=== PATIENT | male | born 1935 | race Caucasian/White ===

== ENCOUNTER 2017-07-18 13:01 | Inpatient (IN) | payer MEDICARE, OTHER ==
[2017-07-18] MEDS ORDERED: PROVENTIL 2.5 MG/3 ML NEB IH ONE ×2 (13:31→13:37)
[2017-07-18] MEDS ORDERED: Lactated Ringers 1,000 ML IV SCH (14:00)
[2017-07-18] MEDS ORDERED: solu-MEDROL 125 MG IV ONE (14:00)
[2017-07-18 14:12] LABS: A-aADO2 -7; ABG HEMOGLOBIN 13.7; ABG POTASSIUM 4.4 (3.5-5.1); ABG SITE LEFT BRACHIAL; ARTERIAL BLD GAS O2 SATURATION 99.6 % (95-100); ARTERIAL BLOOD GAS BASE EXCESS 6.2 (-2.0-2.0); ARTERIAL BLOOD GAS FIO2 28 %; ARTERIAL BLOOD GAS PCO2 54 mmHg (35-45); ARTERIAL BLOOD GAS PO2 139 mmHg (75-100); ARTERIAL BLOOD GAS pH 7.39 (7.35-7.45); CARBOXYHEMOGLOBIN 2.4 % THgb (0.0-6.9); HCO3- 32.7 (22-28); HGB O2 SAT 96.4 g/dF (94-100); Methhemoglobin 0.9 % (1.4-1.5); paO2 pAO1 1.05
[2017-07-18 14:14] LABS: BASOPHIL % 0.4 % (0.0-0.4); Basophil (Absolute #) 0.03 (0-0.4); Eosinophil % 4.9 % (0.00-5.0); Eosinophil (Absolute #) 0.41 (0-0.5); Granulocytes % 60.8 % (36.0-66.0); Hematocrit 43.3 % (42-50); Hemoglobin 13.9 gm/dl (12.5-18.0); Lymphocyte (Absolute #) 1.95 (1.0-4.6); Lymphocytes % 23.3 % (24.0-44.0); Mean Cell Volume 95.4 fl (78-100); Mean Corpuscular Hemoglobin 30.6 pg (26-32); Mean Corpuscular Hgb Concent. 32.1 g/dl (32-36); Monocyte (Absolute #) 0.89 (0.0-1.3); Monocytes % 10.6 % (0.0-12.0); Platelet Count 210 K/mm3 (150-450); Red Blood Count 4.54 M/mm3 (4.1-5.6); Red Cell Distribution Width 13.7 % (11.5-14.0); White Blood Count 8.4 K/mm3 (4.0-10.5)
[2017-07-18 14:36] LABS: ALKALINE PHOSPHATASE 61 U/L (38-126); ANION GAP 13.2 MEQ/L (5-15); BLOOD UREA NITROGEN 19 mg/dL (9-20); CHLORIDE 101 mmol/L (98-107); Calcium 9.7 mg/dL (8.4-10.2); Carbon Dioxide 34 mmol/L (22-30); Glucose 91 mg/dL (74-106); Potassium 4.7 mmol/L (3.5-5.1); SGOT/AST 24 U/L (17-59); SGPT/ALT 20 U/L (0-50); SODIUM 143 mmol/L (137-145); Total Protein 6.8 g/dL (6.3-8.2)
--- NOTE | 2017-07-18 14:39 | XRAY ---
Indication: Hypoxia. Respiratory failure. COPD. Comparison: March 18, 2017. PA/lateral chest unchanged again demonstrating chronic right hemidiaphragm elevation with adjacent subsegmental atelectasis/scarring. Heart is not enlarged. Vascularity normal. Bony thorax intact again with remote T8 compression fracture. Impression: Stable nonacute chest with chronic features.
[2017-07-18 14:46] LABS: NT PRO BNP 874 pg/mL (0-1800)
[2017-07-18] MEDS: ROCEPHIN 1 Gm-D5w 50 ml Bag** 1 G/50 ML IVPB IV SCH (15:30)
[2017-07-18] MEDS: Zithromax 500 MG/ 250 ML NaCl Premix 500 MG/250 ML IVPB IV SCH (16:06)
[2017-07-18] MEDS ORDERED: NON-FORMULARY ITEM (Albuterol Sulfate Mdi*** 2 PUFF) PO PRN (17:22)
[2017-07-18] MEDS ORDERED: PROVENTIL COMMON CANISTER IH PRN (17:30)
[2017-07-18] MEDS ORDERED: solu-MEDROL 125 MG IV SCH (18:00)
[2017-07-18] MEDS: DUONEB 0.5-3 MG/3 ml Neb IH SCH ×2 (19:22→20:48)
[2017-07-18] MEDS: Coreg 6.25 MG PO SCH (21:13)
[2017-07-18] MEDS: Pepcid 20 MG PO SCH (21:14)
[2017-07-18] MEDS: solu-MEDROL 125 MG IV SCH (21:14)
[2017-07-19] MEDS: DUONEB 0.5-3 MG/3 ml Neb IH SCH ×7 (00:36→23:58)
[2017-07-19] MEDS: solu-MEDROL 125 MG IV SCH ×4 (03:57→21:16)
--- NOTE | 2017-07-19 07:05 | PCM.HP ---
History of Present Illness - Chief Complaint Chief Complaint: COPD exac., acute hypoxemia, respiratory failure Date: 07/19/17 History of Present Illness: is a 82 year old male. who has history of chrnoically worsening copd. He couldn't afford the breo and has been using albuterol inhaler at home for the last several months with minimal relief and over the last week or so has been profoundly short of breath with wheezing with minimal activity. He has persistent cough with productive sputum no blood. He has not had fever, vomiting or diarrhea. He presented to clinic where he was found to be in respiratory distress with O2 sat of 88% on room air. He improved minimally after duoneb treatment and placement on 3L nc O2. He was admitted for treatment of copd exacerbation with likely chronic hypoxemic respiratory failure as well. Still short of breath this am but much better on the O2 and nebs - Review of Systems Constitutional: Fatigue, No Fever, No Chills Eyes: No Symptoms Ears, Nose, & Throat: No Symptoms Respiratory: Cough, Orthopnea, Short Of Breath Cardiac: No Chest Pain, No Edema, No Syncope Abdominal/Gastrointestinal: No Abdominal Pain, No Nausea, No Vomiting, No Diarrhea Genitourinary Symptoms: No Dysuria Musculoskeletal: No Back Pain, No Neck Pain Skin: No Rash Neurological: No Dizziness, No Focal Weakness, No Sensory Changes Psychological: No Symptoms Endocrine: No Symptoms Hematologic/Lymphatic: No Symptoms Immunological/Allergic: No Symptoms Medications & Allergies Home Medications: Home Medication List Albuterol Sulfate Mdi [Proair Hfa MDI] 2 puff PO Q4H PRN 07/18/17 [ History Confirmed 07/18/17] Aspirin 81 mg PO DAILY 07/18/17 [History Confirmed 07/18/17] Carvedilol [Carvedilol] 6.25 mg PO DAILY 07/18/17 [History Confirmed 07/18/17] Fluticasone Propionate [Flonase Nasal] 16 gm NS DAILY 07/18/17 [History Confirmed 07/18/17] Furosemide [Furosemide] 40 mg PO DAILY PRN 07/18/17 [History Confirmed 07/18/17] Losartan Potassium [Losartan Potassium] 100 mg PO DAILY 07/18/17 [History Confirmed 07/18/17] PANTOPRAZOLE 40 mg Tablet [Protonix 40MG Tablet] 40 mg PO QAM 07/18/17 [ History Confirmed 07/18/17] Potassium Chloride [Klor-Con M10] 10 meq PO DAILY 07/18/17 [History Confirmed ] Allergies/Adverse Reactions: Allergies Allergy/AdvReac Type Severity Reaction Status Date / Time codeine AdvReac Verified 07/18/17 14:21 - Past Medical History Past Medical History: Yes ENT History: Cataracts Cardiac History: Congestive Heart Failure Respiratory History: CHF, COPD, Pneumonia, Pulmonary Embolism (1967 after the appendectomy) Musculoskelatal History: Arthritis GI Medical History: No Pertinent History History: No Pertinent History Pyscho-Social History: No Pertinent History Male Reproductive Disorders: No Pertinent History - Past Surgical History Past Surgical History: Yes Neuro Surgical History: No Pertinent History Cardiac History: Cardiac Catheterization GI Surgical History: Appendectomy Musculskeletal Surgical Hx: Orthopedic Surgery Other Surgical History: fatty tumor off chest, r rotator cuff shoulder - Social History Smoking Status: Former smoker Exposure to second hand smoke: No Alcohol: None Drug Use: none - Physical Exam Vital Signs: Vital Signs - 24 hr Temp Pulse Resp BP Pulse Ox 07/19/17 04:03 72 18 95 07/19/17 04:00 97.7 F 84 16 137/73 94 L 07/19/17 00:37 74 18 94 L 07/19/17 00:00 97.8 F 79 18 104/61 94 L 07/18/17 20:50 85 18 95 07/18/17 19:46 97.9 F 94 H 18 153/83 97 07/18/17 18:00 20 07/18/17 16:46 97.8 F 79 20 120/60 97 07/18/17 13:45 97.6 F 76 22 150/69 90 L 07/18/17 13:43 74 22 96 Oxygen-Last 24 hours O2 Percentage 3 Liters = 32% O2 Percentage 2 Liters = 28% O2 Percentage 2 Liters = 28% O2 Percentage 3 Liters = 32% General Appearance: mild distress, alert Neurologic Exam: alert, oriented x 3, cooperative, normal mood/affect, nml cerebellar function, nml station & gait, sensation nml, No motor deficits Eye Exam: PERRL/EOMI, eyes nml inspection Ears, Nose, Throat Exam: normal ENT inspection, TMs normal, pharynx normal, moist mucous membranes Neck Exam: normal inspection, non-tender, supple, full range of motion Respiratory Exam: respiratory distress, accessory muscle use, prolonged expirations, wheezing Cardiovascular Exam: regular rate/rhythm, normal peripheral pulses, murmur, No edema Gastrointestinal/Abdomen Exam: soft, normal bowel sounds, No tenderness, No mass Back Exam: normal inspection, normal range of motion, No CVA tenderness, No vertebral tenderness Extremity Exam: normal inspection, normal range of motion, pelvis stable Skin Exam: normal color, warm, dry, No rash Lymphatic Exam: No adenopathy Results - Labs Lab/Micro Results: Lab Results-Last 24 Hours 07/18/17 07/18/17 07/18/17 Range/Units 13:55 13:55 14:10 WBC 8.4 (4.0-10.5) K/mm3 RBC 4.54 (4.1-5.6) M/mm3 Hgb 13.9 (12.5-18.0) gm/dl Hct 43.3 (42-50) % MCV 95.4 (78-100) fl MCH 30.6 (26-32) pg MCHC 32.1 (32-36) g/dl RDW 13.7 (11.5-14.0) % Plt Count 210 (150-450) K/mm3 MPV 9.0 (6-9.5) fl Gran % 60.8 (36.0-66.0) % Eos # (Auto) 0.41 (0-0.5) Absolute Lymphs (auto) 1.95 (1.0-4.6) Absolute Monos (auto) 0.89 (0.0-1.3) Lymphocytes % 23.3 L (24.0-44.0) % Monocytes % 10.6 (0.0-12.0) % Eosinophils % 4.9 (0.00-5.0) % Basophils % 0.4 (0.0-0.4) % Absolute Granulocytes 5.10 (1.4-6.9) Basophils # 0.03 (0-0.4) Puncture Site LEFT BRACHIAL pCO2 54 H (35-45) mmHg pO2 139 H* (75-100) mmHg Base Excess 6.2 H (-2.0-2.0) O2 Saturation 96.4 (94-100) g/dF ABG pH 7.39 (7.35-7.45) ABG HCO3 32.7 H* (22-28) ABG O2 Sat (Measured) 99.6 (95-100) % Srinivasan Test NOT APPLICABLE A-a Gradient -7 a/A Ratio 1.05 Hemoglobin 13.7 Carboxyhemoglobin 2.4 (0.0-6.9) % THgb Methemoglobin 0.9 L (1.4-1.5) % Temperature 37.0 C POC O2 Flow Rate 28 % Sodium 143 (137-145) mmol/L Potassium 4.7 4.4 (3.5-5.1) mmol/L Chloride 101 (98-107) mmol/L Carbon Dioxide 34 H (22-30) mmol/L Anion Gap 13.2 (5-15) MEQ/L BUN 19 (9-20) mg/dL Creatinine 1.00 (0.66-1.25) mg/dL Estimated GFR > 60 ML/MIN Glucose 91 (74-106) mg/dL Lactic Acid (0.4-2.0) Calcium 9.7 (8.4-10.2) mg/dL Magnesium 2.4 H (1.6-2.3) mg/dL Total Bilirubin 0.90 (0.2-1.3) mg/dL AST 24 (17-59) U/L ALT 20 (0-50) U/L Alkaline Phosphatase 61 (38-126) U/L NT-Pro-B Natriuret Pep 874 (0-1800) pg/mL Serum Total Protein 6.8 (6.3-8.2) g/dL Albumin 4.0 (3.5-5.0) g/dL 07/18/17 Range/Units 14:10 WBC (4.0-10.5) K/mm3 RBC (4.1-5.6) M/mm3 Hgb (12.5-18.0) gm/dl Hct (42-50) % MCV (78-100) fl MCH (26-32) pg MCHC (32-36) g/dl RDW (11.5-14.0) % Plt Count (150-450) K/mm3 MPV (6-9.5) fl Gran % (36.0-66.0) % Eos # (Auto) (0-0.5) Absolute Lymphs (auto) (1.0-4.6) Absolute Monos (auto) (0.0-1.3) Lymphocytes % (24.0-44.0) % Monocytes % (0.0-12.0) % Eosinophils % (0.00-5.0) % Basophils % (0.0-0.4) % Absolute Granulocytes (1.4-6.9) Basophils # (0-0.4) Puncture Site pCO2 (35-45) mmHg pO2 (75-100) mmHg Base Excess (-2.0-2.0) O2 Saturation (94-100) g/dF ABG pH (7.35-7.45) ABG HCO3 (22-28) ABG O2 Sat (Measured) (95-100) % Srinivasan Test A-a Gradient a/A Ratio Hemoglobin Carboxyhemoglobin (0.0-6.9) % THgb Methemoglobin (1.4-1.5) % Temperature C POC O2 Flow Rate % Sodium (137-145) mmol/L Potassium (3.5-5.1) mmol/L Chloride (98-107) mmol/L Carbon Dioxide (22-30) mmol/L Anion Gap (5-15) MEQ/L BUN (9-20) mg/dL Creatinine (0.66-1.25) mg/dL Estimated GFR ML/MIN Glucose (74-106) mg/dL Lactic Acid 0.6 (0.4-2.0) Calcium (8.4-10.2) mg/dL Magnesium (1.6-2.3) mg/dL Total Bilirubin (0.2-1.3) mg/dL AST (17-59) U/L ALT (0-50) U/L Alkaline Phosphatase (38-126) U/L NT-Pro-B Natriuret Pep (0-1800) pg/mL Serum Total Protein (6.3-8.2) g/dL Albumin (3.5-5.0) g/dL - Radiology Impressions Radiology Exams & Impressions: Radiology Procedures Category Date Time Status CHEST 2 VIEWS (PA AND LAT) Routine Exams 07/18/17 14:15 Completed - Other Procedures and Tests Respiratory Therapy 07/18/17 13:37 Respiratory Nebulizer STAT 07/18/17 13:40 Respiratory Nebulizer Q4H Respiratory Therapy Consult ROUTINE 07/18/17 13:44 RT Miscellaneous Order ROUTINE 07/18/17 13:45 EKG UD Assessment/Plan (1) Acute exacerbation of chronic obstructive pulmonary disease (COPD) Current Visit: Yes Status: Acute Assessment & Plan: solumedrol, azithromycin, ceftriaxone, duonebs lovenox for ppx pepcid for gi ppx O2 wean as tolerated He has appointment set up to establish with Dr. Conklin on 08/02 he has shown much improvement since last night but still significant wheezing Code(s): J44.1 - CHRONIC OBSTRUCTIVE PULMONARY DISEASE W (ACUTE) EXACERBATION (2) Acute respiratory failure Current Visit: Yes Status: Acute Code(s): J96.00 - ACUTE RESPIRATORY FAILURE , UNSP W HYPOXIA OR HYPERCAPNIA (3) Chronic systolic heart failure Current Visit: Yes Status: Acute Assessment & Plan: was following with Dr. Dao last LVEF from 2013 on file 30 to 40% has not seen in a few years moderate aortic and mitral regurgitation given his orthopnea will repeat echo He did report history of PE that was in 1967 after an appendectomy he has not had any problem with blood clots since Code(s): I50.22 - CHRONIC SYSTOLIC (CONGESTIVE) HEART FAILURE
[2017-07-19] MEDS: ROCEPHIN 1 Gm-D5w 50 ml Bag** 1 G/50 ML IVPB IV SCH (09:17)
[2017-07-19] MEDS: ENOXAPARIN SODIUM SQ SCH (09:20)
[2017-07-19] MEDS: Pepcid 20 MG PO SCH ×2 (09:24→21:16)
[2017-07-19] MEDS: Cozaar 50 MG PO SCH (09:24)
[2017-07-19] MEDS: Coreg 6.25 MG PO SCH ×2 (09:24→21:16)
[2017-07-19] MEDS: Flonase NASAL NS SCH (09:24)
[2017-07-19] MEDS: ECOTRIN 81 MG PO SCH (09:24)
[2017-07-19] MEDS: Protonix 40MG Tablet PO SCH (09:24)
[2017-07-19] MEDS ORDERED: BABY ASPIRIN 81 MG CHEW PO SCH (10:00)
[2017-07-19] MEDS: Zithromax 500 MG/ 250 ML NaCl Premix 500 MG/250 ML IVPB IV SCH (10:11)
[2017-07-20] MEDS: solu-MEDROL 125 MG IV SCH ×4 (03:44→23:13)
[2017-07-20] MEDS: DUONEB 0.5-3 MG/3 ml Neb IH SCH ×5 (04:02→23:42)
[2017-07-20] MEDS: ROCEPHIN 1 Gm-D5w 50 ml Bag** 1 G/50 ML IVPB IV SCH (10:09)
[2017-07-20] MEDS: Pepcid 20 MG PO SCH ×2 (10:10→23:12)
[2017-07-20] MEDS: Cozaar 50 MG PO SCH (10:10)
[2017-07-20] MEDS: Protonix 40MG Tablet PO SCH (10:10)
[2017-07-20] MEDS: Coreg 6.25 MG PO SCH ×2 (10:10→23:13)
[2017-07-20] MEDS: ECOTRIN 81 MG PO SCH (10:11)
[2017-07-20] MEDS: ENOXAPARIN SODIUM SQ SCH (10:11)
[2017-07-20] MEDS: Flonase NASAL NS SCH (10:12)
[2017-07-20] MEDS: Zithromax 500 MG/ 250 ML NaCl Premix 500 MG/250 ML IVPB IV SCH (10:31)
--- NOTE | 2017-07-20 13:35 | PCM.NOTE ---
Date and Time: 07/20/17 1332 Subjective Assessment: Pt currently receiving breathing tx. He indicates he is somewhat better, states he is "getting better little by little." Cornelius po well. - Review of Systems Constitutional: No Fever Respiratory: Short Of Breath Objective Exam General Appearance: no apparent distress Neurologic Exam: alert, cooperative Skin Exam: normal color, warm, dry, No rash Eye Exam: eyes nml inspection Ears, Nose, Throat Exam: moist mucous membranes Respiratory Exam: diminished breath sounds (fair air exchange), wheezing ( throughout), No crackles/rales, No rhonchi Cardiovascular Exam: regular rate/rhythm, normal heart sounds, No murmur Extremity Exam: No pedal edema, No swelling Back Exam: normal inspection, No rash OBJECTIVE DATA Vital Signs: Vital Signs - 24 hr Temp Pulse Resp BP Pulse Ox 07/20/17 12:30 89 20 98 07/20/17 11:53 98 F 82 18 113/62 94 L 07/20/17 10:00 18 07/20/17 07:41 98.3 F 74 20 117/68 95 07/20/17 07:40 89 22 98 07/20/17 06:00 20 07/20/17 04:05 98.0 F 82 20 122/60 98 07/20/17 04:02 86 20 98 07/20/17 02:00 20 07/20/17 00:05 98.1 F 77 20 135/63 96 07/19/17 23:58 81 20 95 07/19/17 22:00 20 07/19/17 20:11 84 20 94 L 07/19/17 20:10 98.2 F 71 20 137/66 96 07/19/17 17:12 22 07/19/17 16:00 97.7 F 91 H 18 127/60 96 07/19/17 13:51 20 Oxygen-Last 24 hours O2 Percentage 3 Liters = 32% O2 Percentage 2 Liters = 28% O2 Percentage 2 Liters = 28% O2 Percentage 2 Liters = 28% Pain Assessment - Last Documented Pain Intensity 0 Pain Scale Used 0-10 Pain Scale Intake and Output: Intake & Output 07/18/17 07/19/17 07/20/17 07/21/17 11:59 11:59 11:59 11:59 Intake Total 1946 1520 360 Output Total 400 700 400 Balance 1546 820 -40 Weight 81.6 kg Radiology Exams: Radiology Procedures Category Date Time Status CHEST 2 VIEWS (PA AND LAT) Routine Exams 07/18/17 14:15 Completed ECHO W/2D AND DOPPLER [US] Routine Exams 07/19/17 08:01 Taken Assessment/Plan (1) Acute exacerbation of chronic obstructive pulmonary disease (COPD) Current Visit: Yes Status: Acute Onset Date: ~07/18/17 Assessment & Plan: Slowly but steadily improving; will not decrease steroids yet. Pt's O2 requirement was up to 3L per NC briefly but now back down to 2L NC. On Solumedrol 80mg IV q6h. Rocehpin and zithromax day #3. Duonebs. lovenox for DVT prophylaxis. Code(s): J44.1 - CHRONIC OBSTRUCTIVE PULMONARY DISEASE W (ACUTE) EXACERBATION (2) Chronic systolic heart failure Current Visit: Yes Status: Chronic Onset Date: ~07/18/17 Assessment & Plan: stable Code(s): I50.22 - CHRONIC SYSTOLIC (CONGESTIVE) HEART FAILURE
[2017-07-21] MEDS: DUONEB 0.5-3 MG/3 ml Neb IH SCH ×5 (03:51→23:00)
[2017-07-21] MEDS: solu-MEDROL 125 MG IV SCH ×3 (03:58→17:31)
[2017-07-21 05:53] LABS: BASOPHIL % 0.1 % (0.0-0.4); Basophil (Absolute #) 0.01 (0-0.4); Eosinophil (Absolute #) 0 (0-0.5); Granulocyte Absolute (ANC) 15.12 (1.4-6.9); Granulocytes % 92.6 % (36.0-66.0); Hematocrit 38.4 % (42-50); Hemoglobin 11.9 gm/dl (12.5-18.0); Lymphocyte (Absolute #) 0.84 (1.0-4.6); Lymphocytes % 5.1 % (24.0-44.0); Mean Cell Volume 97.7 fl (78-100); Mean Platelet Volume 9.4 fl (6-9.5); Monocyte (Absolute #) 0.36 (0.0-1.3); Monocytes % 2.2 % (0.0-12.0); Platelet Count 198 K/mm3 (150-450); Red Blood Count 3.93 M/mm3 (4.1-5.6); Red Cell Distribution Width 14.1 % (11.5-14.0); White Blood Count 16.3 K/mm3 (4.0-10.5)
[2017-07-21 06:03] LABS: Mean Corpuscular Hemoglobin 30.2 pg (26-32)
[2017-07-21 06:07] LABS: BLOOD UREA NITROGEN 36 mg/dL (9-20); CHLORIDE 104 mmol/L (98-107); Carbon Dioxide 32 mmol/L (22-30); Glucose 146 mg/dL (74-106); Potassium 4.7 mmol/L (3.5-5.1); SODIUM 143 mmol/L (137-145)
--- NOTE | 2017-07-21 09:39 | PCM.NOTE ---
Date and Time: 07/21/17935 Subjective Assessment: Pt is feeling better. Has some wheezing with nebs. - Review of Systems Constitutional: No Fever Respiratory: Cough, Short Of Breath Objective Exam General Appearance: no apparent distress, alert Neurologic Exam: oriented x 3, cooperative Skin Exam: normal color, warm, dry, No rash Respiratory Exam: normal breath sounds (good air exchange), wheezing (mild wheeze throughout) Cardiovascular Exam: regular rate/rhythm, normal heart sounds, No murmur Extremity Exam: pedal edema (1+ bilat pretibial edema) OBJECTIVE DATA Vital Signs: Vital Signs - 24 hr Temp Pulse Resp BP Pulse Ox 07/21/17 06:59 97.8 F 80 20 121/70 96 07/21/17 06:00 18 07/21/17 04:05 98.3 F 80 20 128/69 95 07/21/17 03:52 80 20 95 07/21/17 02:00 20 07/20/17 23:42 82 20 94 L 07/20/17 23:38 97.7 F 85 22 144/78 95 07/20/17 22:00 20 07/20/17 19:58 81 20 96 07/20/17 19:39 97.6 F 88 20 155/72 95 07/20/17 18:00 20 07/20/17 16:32 97.8 F 79 20 135/62 98 07/20/17 15:46 86 22 97 07/20/17 14:00 20 07/20/17 12:30 89 20 98 07/20/17 11:53 98 F 82 18 113/62 94 L 07/20/17 10:00 18 Oxygen-Last 24 hours O2 Percentage 2 Liters = 28% O2 Percentage 2 Liters = 28% O2 Percentage 3 Liters = 32% O2 Percentage 3 Liters = 32% O2 Percentage 2 Liters = 28% Pain Assessment - Last Documented Pain Intensity 0 Pain Scale Used 0-10 Pain Scale,FLACC Intake and Output: Intake & Output 07/18/17 07/19/17 07/20/17 07/21/17 11:59 11:59 11:59 11:59 Intake Total 1946 1520 2000 Output Total 909 323 3034 Balance 1546 820 400 Weight 81.6 kg Lab Results: Lab Results-Last 24 Hours 04/01/18 04/01/18 Range/Units 05:23 05:23 WBC 16.3 H (4.0-10.5) K/mm3 RBC 3.93 L (4.1-5.6) M/mm3 Hgb 11.9 L (12.5-18.0) gm/dl Hct 38.4 L (42-50) % MCV 97.7 (78-100) fl MCH 30.2 (26-32) pg MCHC 31.0 L (32-36) g/dl RDW 14.1 H (11.5-14.0) % Plt Count 198 (150-450) K/mm3 MPV 9.4 (6-9.5) fl Gran % 92.6 H (36.0-66.0) % Eos # (Auto) 0 (0-0.5) Absolute Lymphs (auto) 0.84 L (1.0-4.6) Absolute Monos (auto) 0.36 (0.0-1.3) Lymphocytes % 5.1 L (24.0-44.0) % Monocytes % 2.2 (0.0-12.0) % Eosinophils % 0.0 (0.00-5.0) % Basophils % 0.1 (0.0-0.4) % Absolute Granulocytes 15.12 H (1.4-6.9) Basophils # 0.01 (0-0.4) Sodium 143 (137-145) mmol/L Potassium 4.7 (3.5-5.1) mmol/L Chloride 104 (98-107) mmol/L Carbon Dioxide 32 H (22-30) mmol/L Anion Gap 11.0 (5-15) MEQ/L BUN 36 H (9-20) mg/dL Creatinine 1.00 (0.66-1.25) mg/dL Estimated GFR > 60 ML/MIN Glucose 146 H (74-106) mg/dL Calcium 9.0 (8.4-10.2) mg/dL Assessment/Plan (1) Acute exacerbation of chronic obstructive pulmonary disease (COPD) Current Visit: Yes Status: Acute Onset Date: ~07/18/17 Assessment & Plan: Started decreasing steroid, from 80mg IV q6h to 60mg IV q8h today. Anticipate home tomorrow or Saturday. Code(s): J44.1 - CHRONIC OBSTRUCTIVE PULMONARY DISEASE W (ACUTE) EXACERBATION (2) Chronic systolic heart failure Current Visit: Yes Status: Chronic Onset Date: ~07/18/17 Code(s): I50.22 - CHRONIC SYSTOLIC (CONGESTIVE) HEART FAILURE
[2017-07-21] MEDS: ROCEPHIN 1 Gm-D5w 50 ml Bag** 1 G/50 ML IVPB IV SCH ×2 (10:34→10:55)
[2017-07-21] MEDS: ECOTRIN 81 MG PO SCH (10:39)
[2017-07-21] MEDS: Cozaar 50 MG PO SCH (10:39)
[2017-07-21] MEDS: Coreg 6.25 MG PO SCH ×2 (10:39→21:14)
[2017-07-21] MEDS: ENOXAPARIN SODIUM SQ SCH (10:39)
[2017-07-21] MEDS: Pepcid 20 MG PO SCH ×2 (10:39→21:14)
[2017-07-21] MEDS: Protonix 40MG Tablet PO SCH (10:40)
[2017-07-21] MEDS: Flonase NASAL NS SCH (10:41)
[2017-07-21] MEDS: Zithromax 500 MG/ 250 ML NaCl Premix 500 MG/250 ML IVPB IV SCH (11:38)
[2017-07-22] MEDS: DUONEB 0.5-3 MG/3 ml Neb IH SCH ×6 (03:15→23:24)
[2017-07-22] MEDS: solu-MEDROL 125 MG IV SCH ×2 (03:39→09:11)
--- NOTE | 2017-07-22 08:04 | PCM.NOTE ---
Date and Time: 07/22/17 0800 Subjective Assessment: breathing treatment helps but about 1 hour after still very short of breath with minimal exertion still productive cough and wheezing he feels on the left side more shortness ovbreat with just changing position or talking currently but improving Objective Exam General Appearance: no apparent distress, alert Neurologic Exam: alert, oriented x 3, cooperative, normal mood/affect, nml cerebellar function, sensation nml, No motor deficits Skin Exam: normal color, warm, dry Eye Exam: PERRL, EOMI, eyes nml inspection Ears, Nose, Throat Exam: normal ENT inspection, pharynx normal, moist mucous membranes Neck Exam: normal inspection, non-tender, supple, full range of motion Respiratory Exam: rhonchi (left sidedwheezing right side clear), wheezing Cardiovascular Exam: murmur Gastrointestinal/Abdomen Exam: soft, No tenderness, No mass Extremity Exam: normal inspection, normal range of motion Back Exam: normal inspection, normal range of motion, No CVA tenderness, No vertebral tenderness Male Genitalia Exam: deferred Rectal Exam: deferred OBJECTIVE DATA Vital Signs: Vital Signs - 24 hr Temp Pulse Resp BP Pulse Ox 07/22/17 06:45 78 18 98 07/22/17 06:00 18 07/22/17 03:48 97.4 F 76 18 120/56 93 L 07/22/17 03:00 77 18 93 L 07/22/17 02:00 20 07/21/17 23:40 97.6 F 75 20 119/59 93 L 07/21/17 23:00 75 18 95 07/21/17 22:00 18 07/21/17 20:00 97.9 F 83 20 124/66 94 L 07/21/17 19:00 79 18 93 L 07/21/17 18:00 20 07/21/17 16:14 97.8 F 79 20 136/80 97 07/21/17 16:00 98.1 F 90 20 130/75 07/21/17 15:15 77 22 93 L 07/21/17 14:00 20 07/21/17 12:18 98.1 F 90 20 130/75 96 07/21/17 11:10 88 24 91 L Oxygen-Last 24 hours O2 Percentage 2 Liters = 28% O2 Percentage 2 Liters = 28% O2 Percentage 2 Liters = 28% Pain Assessment - Last Documented Pain Intensity 0 Pain Scale Used 0-10 Pain Scale Intake and Output: Intake & Output 07/19/17 07/20/17 07/21/17 07/22/17 11:59 11:59 11:59 11:59 Intake Total 1946 1520 1999 211 Output Total 016 835 2678 400 Balance 1546 492 517 1941 Weight 81.6 kg Assessment/Plan (1) Acute exacerbation of chronic obstructive pulmonary disease (COPD) Current Visit: Yes Status: Acute Onset Date: ~07/18/17 Assessment & Plan: still requiring O2 and still sob with minimal exertion will try to wean steroids try to qualify for home O2 with his chronic respiratory failure and plan for home tomorrow if tolerating the steroid wean Code(s): J44.1 - CHRONIC OBSTRUCTIVE PULMONARY DISEASE W (ACUTE) EXACERBATION (2) Acute respiratory failure Current Visit: Yes Status: Acute Onset Date: ~07/18/17 Code(s): J96.00 - ACUTE RESPIRATORY FAILURE, UNSP W HYPOXIA OR HYPERCAPNIA (3) Chronic systolic heart failure Current Visit: Yes Status: Chronic Onset Date: ~07/18/17 Code(s): I50.22 - CHRONIC SYSTOLIC (CONGESTIVE) HEART FAILURE (4) Chronic respiratory failure Current Visit: Yes Status: Acute Qualifiers: Respiratory failure complication: hypoxia Qualified Code(s): J96.11 - Chronic respiratory failure with hypoxia Code(s): J96.10 - CHRONIC RESPIRATORY FAILURE, UNSP W HYPOXIA OR HYPERCAPNIA
[2017-07-22] MEDS: Protonix 40MG Tablet PO SCH (09:08)
[2017-07-22] MEDS: ECOTRIN 81 MG PO SCH (09:08)
[2017-07-22] MEDS: DELTASONE 20 MG PO SCH (09:08)
[2017-07-22] MEDS: Coreg 6.25 MG PO SCH ×2 (09:08→22:11)
[2017-07-22] MEDS: Pepcid 20 MG PO SCH ×2 (09:08→22:11)
[2017-07-22] MEDS: Cozaar 50 MG PO SCH (09:08)
[2017-07-22] MEDS: ENOXAPARIN SODIUM SQ SCH (09:09)
[2017-07-22] MEDS: Flonase NASAL NS SCH (09:09)
[2017-07-22] MEDS: ROCEPHIN 1 Gm-D5w 50 ml Bag** 1 G/50 ML IVPB IV SCH (09:09)
[2017-07-22] MEDS: Zithromax 500 MG/ 250 ML NaCl Premix 500 MG/250 ML IVPB IV SCH (10:18)
[2017-07-23] MEDS: DUONEB 0.5-3 MG/3 ml Neb IH SCH ×3 (03:10→10:30)
--- NOTE | 2017-07-23 08:11 | PCM.DS ---
Discharge Summary Date of Admission: 07/18/17 13:12 Date of Discharge: 07/23/2017 Admitting Physician: LUCIEN HO Primary Care Provider: LUCIEN HO Allergies Allergies codeine Adverse Reaction (Verified 07/18/17 14:21) Hospital Summary - Hospital Course Hospital Course: Mr. Calhoun has hx of chf but several months ago was having worsening difficulty with cough and wheezing pft showed severe copd and he was placed on breo but couldn't afford and thus was not taking. His shortness of breath was worsening and he came to the office and was found to be hypoxic with severe wheezing and dimished air movement. He was admitted and treated with iv steroids and antibiotics as well as duonebs. He had an echocardiogram done with results pending. He showed slow improvement. He was reluctant to go home on oxygen and attempt was made to wean but was unsuccessful despite maximizing the treatment for the copd. He did agree to go home with oxygen and will complete a steroid taper and has appointment that was already scheduled to follow up with Dr. Vega. He will also start advair and spiriva or similar if we can find a covered alternative. - Vitals & Intake/Output Vital Signs: Vital Signs Temperature 98.3 F 07/23/17 07:32 Pulse Rate 88 07/23/17 07:49 Respiratory Rate 16 07/23/17 07:49 Blood Pressure 120/70 07/23/17 07:32 O2 Sat by Pulse Oximetry 99 07/23/17 07:49 Oxygen-Last Documented O2 Percentage 2 Liters = 28% Intake & Output: Intake & Output 07/20/17 07/21/17 07/22/17 07/23/17 11:59 11:59 11:59 11:59 Intake Total 1520 2000 2471 1320 Output Total 700 1600 400 300 Balance 277 489 8620 1020 Weight 81.6 kg - Lab Result Diagrams: 07/21/17 05:23 07/21/17 05:23 Micro Results-Entire Visit: Microbiology 07/18/17 21:30 Gram Stain - Final Sputum - Expectorant Sputum Culture - Final ORGANISMS ISOLATED ARE CONSISTENT WITH NORMAL RESP TYRON MODERATE GROWTH, NO PREDOMINANT ORGANISM 07/18/17 14:05 Blood Culture - Preliminary Blood NO GROWTH TO DATE 07/18/17 13:55 Blood Culture - Preliminary Blood NO GROWTH TO DATE - Procedures and Test Procedures and Tests throughout Hospitalization: Therapy Orders & Screens 07/18/17 13:37 Respiratory Nebulizer STAT Comment: 07/18/17 13:40 Respiratory Nebulizer Q4H Comment: Duoneb q 4 hr Respiratory Therapy Consult ROUTINE Comment: Reason For Exam: COPD exac., hypoxemia, respiratory failure Diagnosis: COPD exac., acute hypoxemia, respiratory failure 07/18/17 13:44 RT Miscellaneous Order ROUTINE Comment: Physician Instructions: Reason For Exam: O2 titrate pulse ox 88-92% Diagnosis: COPD exac., acute hypoxemia, respiratory failure 07/18/17 13:45 EKG UD Comment: Diagnosis: COPD exac., acute hypoxemia, respiratory failure 07/19/17 20:11 Oxygen NASAL CANNULA 2 lpm Comment: Diagnosis: COPD exac., acute hypoxemia, respiratory failure 07/22/17 08:03 Qualify for Home Oxygen ROUTINE Comment: Diagnosis: COPD exac., acute hypoxemia, respiratory failure Discharge Exam General Appearance: no apparent distress, alert Neurologic Exam: alert, oriented x 3, cooperative, normal mood/affect, nml cerebellar function, sensation nml, No motor deficits Skin Exam: normal color, warm, dry Eye Exam: PERRL, EOMI, eyes nml inspection Ears, Nose, Throat Exam: normal ENT inspection, pharynx normal, moist mucous membranes Neck Exam: normal inspection, non-tender, supple, full range of motion Respiratory Exam: wheezing, No respiratory distress Cardiovascular Exam: regular rate/rhythm, murmur Gastrointestinal/Abdomen Exam: soft, No tenderness, No mass Extremity Exam: normal inspection, normal range of motion Back Exam: normal inspection, normal range of motion, No CVA tenderness, No vertebral tenderness Male Genitalia Exam: deferred Rectal Exam: deferred Final Diagnosis/Problem List - Final Discharge Diagnosis/Problem (1) Acute exacerbation of chronic obstructive pulmonary disease (COPD) Status: Acute Onset Date: ~07/18/17 (2) Acute respiratory failure Status: Acute Onset Date: ~07/18/17 (3) Chronic systolic heart failure Status: Chronic Onset Date: ~07/18/17 (4) Chronic respiratory failure Status: Acute - Discharge Discharge Date: 07/23/17 Disposition: Home, Self-Care Condition: Stable Prescriptions: New Prednisone 10 mg [Deltasone 10 mg] 10 mg PO UD #36 tablet Fluticasone/Salmeterol [Advair 500-50 Diskus] 1 each IH BID #1 disk.w.dev Tiotropium [place] Inhaler [Spiriva 18 Mcg/Cap Inhaler] 1 ea IH DAILY # 30 inh Continue PANTOPRAZOLE 40 mg Tablet [Protonix 40MG Tablet] 40 mg PO QAM Potassium Chloride [Klor-Con M10] 10 meq PO DAILY Losartan Potassium 100 mg PO DAILY Furosemide 40 mg PO DAILY PRN PRN Reason: edema Fluticasone Propionate [Flonase Nasal] 16 gm NS BID Carvedilol 6.25 mg PO DAILY Aspirin 81 mg PO DAILY Albuterol Sulfate Mdi [Proair Hfa MDI] 2 puff PO Q4H PRN PRN Reason: sob Instructions: Oxygen Therapy, Adult (DC), Exacerbation of COPD (DC) Additional Instructions: 2 L nc O2 use at all times until follow up Follow up with: LAMAR VEGA [ACTIVE STAFF] - 08/01/17 9:30 am (keep appointment scheduled next week) LUCIEN HO [Primary Care Provider] - 07/30/17 9:45 am Forms: Discharge Instructions
[2017-07-23] MEDS: DELTASONE 20 MG PO SCH (09:10)
[2017-07-23] MEDS: Pepcid 20 MG PO SCH (09:10)
[2017-07-23] MEDS: Coreg 6.25 MG PO SCH (09:10)
[2017-07-23] MEDS: Protonix 40MG Tablet PO SCH (09:10)
[2017-07-23] MEDS: ECOTRIN 81 MG PO SCH (09:10)
[2017-07-23] MEDS: Cozaar 50 MG PO SCH (09:10)
[2017-07-23] MEDS: ROCEPHIN 1 Gm-D5w 50 ml Bag** 1 G/50 ML IVPB IV SCH (09:12)
[2017-07-23] MEDS: ENOXAPARIN SODIUM SQ SCH (09:14)
[2017-07-23] MEDS: Flonase NASAL NS SCH (09:15)
[2017-07-23] MEDS: Zithromax 500 MG/ 250 ML NaCl Premix 500 MG/250 ML IVPB IV SCH (09:50)
[2017-07-23 11:52] VITALS: BP 118/65; PULSE 83; O2SAT 95
== END 2017-07-23 12:45 | disposition home or self-care (01) | DRG 190 ==
LOC: UNDOADMIN 13:12 → MED SURG 13:12
PROVIDERS: ADMIT Family Medicine; ATTEND Family Medicine
DX: J44.1 Chronic obstructive pulmonary disease with (acute) exacerbation (principal); J96.00 Acute respiratory failure, unspecified whether with hypoxia or hypercapnia; I50.22 Chronic systolic (congestive) heart failure; J96.10 Chronic respiratory failure, unspecified whether with hypoxia or hypercapnia; Z86.711 Personal history of pulmonary embolism; Z87.891 Personal history of nicotine dependence
CPT/HCPCS: 36415; 36600; 71046; 80048; 80053; 82375; 82803; 83605; 83735; 83880; 85025; 87040; 87070; 93005; 93306; 94150; 94640; 94760; J0456; J0696; J1650; J2930; A9270-GY

== ENCOUNTER 2020-12-09 07:10 | Emergency (ER) | payer MEDICARE, OTHER ==
--- NOTE | 2020-12-09 07:19 | ERPHSYRPT ---
- History of Present Illness Time Seen by Provider: 12/09/20 07:19 Source: patient Exam Limitations: clinical condition Physician History: 85 y/o white male pt of dr. mendoza who presents with soa since last pm. sx worsening. no cp. bilat feet and ankle edema present. pt saw his pharmacognosy teacher 2 days ago( dr. bond). sx came on suddenly last pm. meds not taken this am. pt has h/o copd, htn, gerdz, chf. pt on 3 liters oxygen via nc. The patient's stock receiver is Dr. Dao Timing/Duration: today, yesterday, worse Activities at Onset: none Severity of Dyspnea-Max: moderate Severity of Dyspnea-Current: moderate Possible Cause: occasional episodes Associated Symptoms: ankle swelling, No chest pain/discomfort Allergies/Adverse Reactions: codeine Adverse Reaction (Verified 12/09/20 07:23) Home Medications: Albuterol Sulfate Mdi [Proair Hfa MDI] 2 puff PO Q4H PRN 07/18/17 [History] Furosemide 40 mg PO DAILY PRN 07/18/17 [History] Losartan Potassium 100 mg PO DAILY 07/18/17 [History] Potassium Chloride [Klor-Con M10] 10 meq PO DAILY 07/18/17 [History] carvediloL [Carvedilol] 6.25 mg PO DAILY 07/18/17 [History] Aspirin 81 gm Chew [Baby Aspirin 81 mg Chew] 1 ea .ROUTE DAILY 12/09/20 [History] Fluticasone/Umeclidin/Vilanter [Trelegy Ellipta 100-62.5-25] 1 puff PO DAILY 12/09/20 [History] Travel Risk - International Travel Have you traveled outside of the country in past 3 weeks: No - Coronavirus Screening Are you exhibiting any of the following symptoms?: Yes Symptoms: Shortness of Breath Close contact with a COVID-19 positive Pt in past 14-21 Days: No - Review of Systems Constitutional: No Symptoms Eyes: No Symptoms Ears, Nose, & Throat: No Symptoms Respiratory: Dyspnea, Wheezing Cardiac: No Symptoms Abdominal/Gastrointestinal: No Symptoms Genitourinary Symptoms: No Symptoms Musculoskeletal: No Symptoms Skin: No Symptoms Neurological: No Symptoms Psychological: No Symptoms Endocrine: No Symptoms Hematologic/Lymphatic: No Symptoms Immunological/Allergic: No Symptoms All Other Systems: Reviewed and Negative - Past Medical History Pertinent Past Medical History: Yes ENT History: Cataracts Cardiac History: Congestive Heart Failure Respiratory History: CHF, COPD, Pneumonia, Pulmonary Embolism (1967 after the appendectomy) Musculoskeletal History: Arthritis GI Medical History: No Pertinent History History: No Pertinent History Psycho-Social History: No Pertinent History Male Reproductive Disorders: No Pertinent History - Past Surgical History Past Surgical History: Yes Neuro Surgical History: No Pertinent History Cardiac: Cardiac Catheterization Gastrointestinal: Appendectomy Musculoskeletal: Orthopedic Surgery Other Surgical History: fatty tumor off chest, r rotator cuff shoulder - Social History Smoking Status: Former smoker Exposure to second hand smoke: No Drug Use: none - Nursing Vital Signs Nursing Vital Signs: Initial Vital Signs Temperature 97.7 F 12/09/20 07:12 Pulse Rate 120 H 12/09/20 07:12 Respiratory Rate 26 H 12/09/20 07:12 Blood Pressure 123/89 12/09/20 07:12 O2 Sat by Pulse Oximetry 100 12/09/20 07:12 Pain Scale Pain Intensity 0 - Physical Exam General Appearance: mild distress, alert, anxiety, obese Eye Exam: PERRL/EOMI, eyes nml inspection Ears, Nose, Throat Exam: hearing grossly normal Neck Exam: normal inspection, non-tender, supple, full range of motion Respiratory Exam: respiratory distress (Mild), airway intact, wheezing (Bilateral expiratory), No chest tenderness Cardiovascular/Chest Exam: tachycardia Abdominal/Gastrointestinal Exam: soft, normal bowel sounds, No tenderness Rectal Exam: not done Extremity Exam: non-tender, normal range of motion, pedal edema (Bilaterally) Neurologic Exam: alert, oriented x 3, cooperative, tablet technician II-XII nml as tested, normal mood/affect, sensation nml Skin Exam: normal color, warm, dry Lymphatic Exam: No adenopathy SpO2 Interpretation: normal O2 Delivery: Nasal Cannula - Course Nursing assessment & vital signs reviewed: Yes EKG Interpreted by Me: RATE ([id number]), Sinus Tach, Left Bundle Branch Block, Other (no acute ischemia. when compared to ekg dated 07/18/17, new sinus tach, new lbbb, rbbb and lafb resolved) Ordered Tests: Active Orders 24 hr Category Date Time Status EKG-ER Only STAT Care 12/09/20 07:29 Active IV Insertion STAT Care 12/09/20 07:29 Active Oxygen-ED Only Nasal Cannula 3 lpm Care 12/09/20 07:29 Active Pulse Oximetry (ED) STAT Care 12/09/20 07:29 Active CHEST 1 VIEW (PORTABLE) Stat Exams 12/09/20 07:29 Taken CHEST WITH CONTRAST [CT] Stat Exams 12/09/20 09:01 Completed CBC W DIFF Stat Lab 12/09/20 07:45 Completed CMP Stat Lab 12/09/20 07:45 Completed D-DIMER QUANTITATIVE Stat Lab 12/09/20 07:45 Completed Lactic Acid Urgent Lab 12/09/20 07:50 Completed Manual Differential NC Stat Lab 12/09/20 07:45 Completed PROTIME WITH INR Stat Lab 12/09/20 07:45 Completed TROPONIN Q3H Lab 12/09/20 07:30 Completed TROPONIN Q3H Lab 12/09/20 10:40 Received TROPONIN Q3H Lab 12/09/20 13:30 Ordered TROPONIN Q3H Lab 12/09/20 16:30 Ordered TROPONIN Q3H Lab 12/09/20 19:30 Ordered VBG [VENOUS BLOOD GAS] Stat Lab 12/09/20 07:50 Completed Respiratory Therapy Assessment DAILY RT 12/09/20 07:50 Active Medication Summary Generic Name Dose Route Start Last Admin Trade Name Freq PRN Reason Stop Dose Admin Sodium Chloride 500 mls @ 50 mls/hr 12/09/20 09:00 12/09/20 09:53 Sodium Chloride 0.9% 500 Ml IV 01/08/21 08:59 50 mls/hr .Q10H DIMPLE Administration Discontinued Medications Generic Name Dose Route Start Last Admin Trade Name Freq PRN Reason Stop Dose Admin Albuterol Sulfate 2.5 mg 12/09/20 07:32 12/09/20 07:51 Proventil 2.5 Mg/3 Ml Neb IH 12/09/20 07:33 2.5 mg STAT ONE Administration Albuterol Sulfate Confirm 12/09/20 07:36 Proventil 2.5 Mg/3 Ml Neb Administered 12/09/20 07:37 Dose 2.5 mg IH .STK-MED ONE Methylprednisolone Sodium 0 mg 12/09/20 07:32 12/09/20 08:56 Succinate 125 mg/ Sterile IV 12/09/20 07:33 125 mg Water 2 ml STAT ONE Administration Enoxaparin Sodium 90 mg 12/09/20 10:54 Enoxaparin Sodium SQ 12/09/20 10:55 STAT STA Furosemide 40 mg 12/09/20 07:32 12/09/20 08:56 Lasix 40 Mg/4 Ml IV 12/09/20 07:33 40 mg STAT ONE Administration Furosemide Confirm 12/09/20 08:54 Lasix 40 Mg/4 Ml Administered 12/09/20 08:55 Dose 40 mg .ROUTE .STK-MED ONE Sodium Chloride Confirm 12/09/20 09:49 Sodium Chloride 0.9% 1000 Ml Administered 12/09/20 09:50 Dose 1,000 mls @ ud .ROUTE .STK-MED ONE Methylprednisolone Sodium Succinate Confirm 12/09/20 08:54 Solu-Medrol Administered 12/09/20 08:55 Dose 125 mg .ROUTE .STK-MED ONE Sterile Water Confirm 12/09/20 08:55 Sterile H2o 10 Ml Administered 12/09/20 08:56 Dose 10 ml IJ .STK-MED ONE Lab/Rad Data: Laboratory Result Diagrams 12/09/20 07:45 12/09/20 07:45 Laboratory Results 12/09/20 12/09/20 12/09/20 Range/Units 07:50 07:50 07:45 WBC (4.0-10.5) K/mm3 RBC (4.1-5.6) M/mm3 Hgb (12.5-18.0) gm/dl Hct (42-50) % MCV (78-100) fl MCH (26-32) pg MCHC (32-36) g/dl RDW (11.5-14.0) % Plt Count (150-450) K/mm3 MPV (7.5-11.0) fl Absolute Granulocytes (1.4-6.9) Segmented Neutrophils (36.-66.) % Band Neutrophils (0.0-2.0) % Lymphocytes (Manual) (24-44) % Monocytes (Manual) (0.0-12.0) % Platelet Estimate (NORMAL) RBC Morphology PT 12.9 H (9.4-12.5) SECONDS INR 1.09 (0.8-3.0) D-Dimer 1572 H* (215-500) ng/mL pO2/FiO2 Ratio 32.0 % VBG pH 7.34 (7.32-7.42) VBG pCO2 at Pat Temp 70 H* (42-55) mm/Hg VBG pO2 at Pat Temp 20 L (25-40) mm/Hg VBG HCO3 37.8 H* (22-28) meq/L VBG O2 Sat (Ashleigh) 35.5 L (95-100) VBG Base Excess 9.2 H (-2.0-2.0) VBG Hemoglobin 13.4 VBG Carboxyhemoglobin 2.8 (0.0-6.9) % T HGB POC Potassium 4.9 (3.5-5.1) Sodium (137-145) mmol/L Potassium (3.5-5.1) mmol/L Chloride (98-107) mmol/L Carbon Dioxide (22-30) mmol/L Anion Gap (5-15) MEQ/L BUN (9-20) mg/dL Creatinine (0.66-1.25) mg/dL Estimated GFR ML/MIN Glucose (74-106) mg/dL Lactic Acid 1.8 (0.4-2.0) Calcium (8.4-10.2) mg/dL Total Bilirubin (0.2-1.3) mg/dL AST (17-59) U/L ALT (0-50) U/L Alkaline Phosphatase (38-126) U/L Troponin I (0.000-0.034) ng/mL Serum Total Protein (6.3-8.2) g/dL Albumin (3.5-5.0) g/dL 12/09/20 12/09/20 12/09/20 Range/Units 07:45 07:45 07:30 WBC 16.9 H (4.0-10.5) K/mm3 RBC 4.35 (4.1-5.6) M/mm3 Hgb 13.3 (12.5-18.0) gm/dl Hct 43.9 (42-50) % MCV 100.9 H (78-100) fl MCH 30.6 (26-32) pg MCHC 30.3 L (32-36) g/dl RDW 14.9 H (11.5-14.0) % Plt Count 188 (150-450) K/mm3 MPV 9.4 (7.5-11.0) fl Absolute Granulocytes 12.48 H (1.4-6.9) Segmented Neutrophils 72 H (36.-66.) % Band Neutrophils 2 (0.0-2.0) % Lymphocytes (Manual) 19 L (24-44) % Monocytes (Manual) 7 (0.0-12.0) % Platelet Estimate NORMAL (NORMAL) RBC Morphology NORMAL PT (9.4-12.5) SECONDS INR (0.8-3.0) D-Dimer (215-500) ng/mL pO2/FiO2 Ratio % VBG pH (7.32-7.42) VBG pCO2 at Pat Temp (42-55) mm/Hg VBG pO2 at Pat Temp (25-40) mm/Hg VBG HCO3 (22-28) meq/L VBG O2 Sat (Ashleigh) (95-100) VBG Base Excess (-2.0-2.0) VBG Hemoglobin VBG Carboxyhemoglobin (0.0-6.9) % T HGB POC Potassium (3.5-5.1) Sodium 140 (137-145) mmol/L Potassium 4.6 (3.5-5.1) mmol/L Chloride 97 L (98-107) mmol/L Carbon Dioxide 34 H (22-30) mmol/L Anion Gap 13.8 (5-15) MEQ/L BUN 47 H (9-20) mg/dL Creatinine 1.38 H (0.66-1.25) mg/dL Estimated GFR 51.9 ML/MIN Glucose 135 H (74-106) mg/dL Lactic Acid (0.4-2.0) Calcium 9.7 (8.4-10.2) mg/dL Total Bilirubin 1.60 H (0.2-1.3) mg/dL AST 66 H (17-59) U/L ALT 120 H (0-50) U/L Alkaline Phosphatase 58 (38-126) U/L Troponin I 0.055 H* (0.000-0.034) ng/mL Serum Total Protein 7.1 (6.3-8.2) g/dL Albumin 4.0 (3.5-5.0) g/dL - Progress Progress: improved, re-examined Air Movement: fair Progress Note: 12/09/20 10:58 Medical decision making: CAT scan of the chest with contrast shows a new distal right main pulmonary artery embolus with no distal pulmonary infarction. I discussed this with the patient and the patient's . The patient has a preference of being transferred to [facility]. His stock receiver and pharmacognosy teacher both have privileges there. Counseled pt/family regarding: lab results, diagnosis, need for follow-up, rad results - Departure Departure Disposition: Transfer Clinical Impression: Shortness of breath, Pulmonary embolus, right Condition: Fair Critical Care Time: Yes Critical Care Time(excluding separately billable procedures): Critical 30-74 mins Referrals: KELY MENDOZA [Primary Care Provider] -
[2020-12-09] MEDS ORDERED: PROVENTIL 2.5 MG/3 ML NEB IH ONE ×2 (07:32→07:36)
[2020-12-09] MEDS ORDERED: Lasix 40 MG/4 ML IV ONE (07:32)
[2020-12-09] MEDS ORDERED: solu-MEDROL 125 MG, Sterile H2O 10 ml 2 ML IV ONE ×2 (07:32)
[2020-12-09 07:51] LABS: Hematocrit 43.9 % (42-50); Hemoglobin 13.3 gm/dl (12.5-18.0); Mean Cell Volume 100.9 fl (78-100); Mean Corpuscular Hemoglobin 30.6 pg (26-32); Mean Corpuscular Hgb Concent. 30.3 g/dl (32-36); Mean Platelet Volume 9.4 fl (7.5-11.0); Platelet Count 188 K/mm3 (150-450); Red Blood Count 4.35 M/mm3 (4.1-5.6); Red Cell Distribution Width 14.9 % (11.5-14.0); White Blood Count 16.9 K/mm3 (4.0-10.5)
[2020-12-09 07:54] LABS: VBG BASE EXCESS 9.2 (-2.0-2.0); VBG CARBOXYHEMOGLOBIN 2.8 % T HGB (0.0-6.9); VBG HCO3- 37.8 meq/L (22-28); VBG HEMOGLOBIN 13.4; VBG O2 SATURATION 35.5 (95-100); VBG POTASSIUM 4.9 (3.5-5.1); VBG pH 7.34 (7.32-7.42)
[2020-12-09 07:58] LABS: INR 1.09 (0.8-3.0); PROTIME 12.9 SECONDS (9.4-12.5)
[2020-12-09 08:03] LABS: ANION GAP 13.8 MEQ/L (5-15); BILIRUBIN,TOTAL 1.6 mg/dL (0.2-1.3); Calcium 9.7 mg/dL (8.4-10.2); Creatinine 1 1.38 mg/dL (0.66-1.25); EST GLOMERULAR FILTRATION RATE 51.9 ML/MIN; Potassium 4.6 mmol/L (3.5-5.1); Total Protein 7.1 g/dL (6.3-8.2)
[2020-12-09 08:18] LABS: BAND 2 % (0.0-2.0); Lymphocytes 19 % (24-44); Monocyte 7 % (0.0-12.0); Neutrophils 72 % (36.-66.); Total Cells Counted 100
[2020-12-09 08:19] LABS: Platelet Estimate NORMAL (NORMAL)
[2020-12-09 08:20] LABS: Absolute Neutrophil Ct (ANC) 12.48 (1.4-6.9)
[2020-12-09] MEDS ORDERED: solu-MEDROL ONE (08:54)
[2020-12-09] MEDS ORDERED: Lasix 40 MG/4 ML ONE (08:54)
[2020-12-09] MEDS ORDERED: Sterile H2O 10 ml IJ ONE (08:55)
[2020-12-09] MEDS ORDERED: Sodium Chloride 0.9% 500 ML 500 ML IV SCH (09:00)
[2020-12-09] MEDS ORDERED: Sodium Chloride 0.9% 1000 ML 0 ML ONE (09:49)
[2020-12-09] MEDS ORDERED: Sodium Chloride 0.9% 500 ML 500 ML IV ONE (09:50)
--- NOTE | 2020-12-09 10:50 | XRAY ---
Indication: Short of breath. CHF. Elevated d-dimer. Multiple contiguous images obtained through the chest using 100 cc Isovue 370 contrast and PE protocol. Comparison: July 30, 2007. There is good opacification of the pulmonary arteries to include the lobar and segmental branches. New large nonoccluding pulmonary embolus in the right main pulmonary artery slightly extending into the proximal right middle and right lower lobe branches. Heart not enlarged. Aorta mildly atherosclerotic without aneurysm. No pathologic mediastinal/hilar lymphadenopathy. Again small hiatal hernia. There remains chronic right hemidiaphragm elevation with mild right base subsegmental atelectasis. No suspicious pulmonary mass, infiltrate, or effusion. Left hemithorax demonstrates new minimal calcified pleural plaquing. Bony thorax intact. Limited upper abdomen again demonstrates fatty liver and bilateral renal cysts, largest on the left measuring 5 cm. Impression: 1. New nonoccluding right main pulmonary artery embolus. No distal pulmonary infarct. 2. New minimal left hemithorax calcified pleural plaquing. 3. Again incidental small hiatal hernia, fatty liver, and bilateral renal cysts. Comment: Telephone report given to the ordering clinician, Dr. Doty at 1044 hrs. on December 09, 2020.
[2020-12-09] MEDS ORDERED: ENOXAPARIN SODIUM SQ STA (10:54)
--- NOTE | 2020-12-09 11:05 | XRAY ---
Indication: Short of breath. Comparison: November 21, 2020. Portable apical lordotic chest unchanged again demonstrating chronic right hemidiaphragm elevation with minimal right base subsegmental atelectasis/scarring and left costophrenic angle blunting. Heart not enlarged for AP potable technique. No new cardiopulmonary abnormalities.
[2020-12-09] MEDS ORDERED: ENOXAPARIN SODIUM SQ ONE (11:11)
[2020-12-09 16:40] VITALS: BP 129/91; PULSE 111; O2SAT 98
== END 2020-12-09 17:20 | disposition short-term general hospital (02) ==
LOC: ED 07:10
DX: R06.02 Shortness of breath (principal); I26.99 Other pulmonary embolism without acute cor pulmonale; Z79.899 Other long term (current) drug therapy; I50.9 Heart failure, unspecified; J44.9 Chronic obstructive pulmonary disease, unspecified; M19.90 Unspecified osteoarthritis, unspecified site
CPT/HCPCS: 36000; 36415; 71045; 71260; 80053; 82805; 83605; 84484; 85025; 85379; 85610; 93005; 94640; 94760; 96372; 96374; 96375; 99285; 99291; J1650; J1940; J2930; J7609; A9270-GY

== ENCOUNTER 2021-09-13 08:27 | Day surgery (SDC) | payer MEDICARE, OTHER ==
[2021-09-13] MEDS ORDERED: Sodium Chloride 0.9(Preservative Free) 10 ML IJ ONE (08:28)
[2021-09-13] MEDS ORDERED: Depo-Medrol 40 MG/ML IM ONE (08:28)
[2021-09-13] MEDS ORDERED: Lactated Ringers 1,000 ML IV ONE (10:11)
[2021-09-13] MEDS ORDERED: DIPRIVAN 200 MG/20 ML IV ONE ×2 (10:19→10:20)
[2021-09-13] MEDS ORDERED: MORPHINE SULFATE 2 MG INJ ONE (10:36)
--- NOTE | 2021-09-13 11:41 | XRAY ---
Indication: Right L2-L4 transforaminal LELA. Intraoperative fluoroscopy provided for 41 seconds. 4 digital spot image submitted for interpretation demonstrate posterior needle tips projecting over the expected right L2 and L3 nerve roots. Small amount of contrast injected for needle tip placement. Correlate with intraoperative findings/report.
--- NOTE | 2021-09-13 11:43 | XRAY ---
41 seconds of fluoroscopy was used in surgery for a right L2-L4 transforaminal LELA.
== END 2021-09-13 10:47 | disposition home or self-care (01) ==
LOC: SDC-PAIN 08:27
PROVIDERS: ATTEND Psychiatry & Neurology Pain Medicine
DX: M54.16 Radiculopathy, lumbar region (principal); Z79.899 Other long term (current) drug therapy
CPT/HCPCS: 64483; 64484; 72100; 77003; J1030; J2270; J2704; Q9966

== ENCOUNTER 2022-05-31 05:22 | Inpatient (IN) | payer MEDICARE, OTHER ==
--- NOTE | 2022-05-31 06:16 | ERPHSYRPT ---
- History of Present Illness Time Seen by Provider: 05/31/22 06:13 Source: patient Exam Limitations: no limitations Patient Subjective Stated Complaint: nose bleed that started around 1600 yesterday and bled through the night Triage Nursing Assessment: pt to ED c/o nose bleed that started yesterday around 1600. pt states he wears 2L NC at home most of the time but does use humidified air while in the home. portable O2 tank that is not humidified and mostly just used when out. pt denies pain, dizzy, lightheadedness at this time. pt is anticoagulated, takes xarelto. pt does appear to be pale but pts states she does not see anything much different about his complection. Physician History: Patient is an 87-year-old male presents emergency department with his for evaluation of a nosebleed. However patient also mentions that he has been experiencing progressive shortness of breath. patient has a history of COPD and congestive heart failure. Patient's materials and corrosion engineer is Dr. Gooden. Primary care doctor is Dr. Daugherty. Symptoms have been progressive. Symptoms are moderate in intensity. No specific worsening improving factors. Patient voices no other complaints or concerns at this time. Timing/Duration: today Activities at Onset: none Severity of Dyspnea-Max: moderate Severity of Dyspnea-Current: moderate Possible Cause: frequent episodes Modifying Factors: Improves With: activity Allergies/Adverse Reactions: codeine Adverse Reaction (Verified 05/31/22 06:02) Home Medications: Furosemide 10 mg PO DAILY PRN 07/18/17 [History] Potassium Chloride [Klor-Con M10] 20 meq PO DAILY 07/18/17 [History] carvediloL [Carvedilol] 3.125 mg PO BID 07/18/17 [History] Fluticasone/Umeclidin/Vilanter [Trelegy Ellipta 100-62.5-25] 1 puff PO DAILY 12/09/20 [History] Albuterol Sulfate [Proair Respiclick] 90 mcg IH DAILY 05/31/22 [History] Amiodarone HCl 50 mg PO DAILY 05/31/22 [History] Digoxin 0.125 mg Tablet [Lanoxin 0.125MG TABLET] 0.125 mg PO DAILY 05/31/22 [History] Fluticasone Furoate [Arnuity Ellipta] 2 puffs IH DAILY 05/31/22 [History] Metolazone 2.5 mg [Zaroxolyn 2.5 MG] 2.5 mg PO DAILY 05/31/22 [History] Rivaroxaban [Xarelto] 15 mg PO DAILY 05/31/22 [History] Ropinirole HCl 0.5 mg PO DAILY 05/31/22 [History] Hx Tetanus, Diphtheria Vaccination/Date Given: Yes Hx Influenza Vaccination/Date Given: Yes Hx Pneumococcal Vaccination/Date Given: Yes Immunizations Up to Date: Yes Travel Risk - International Travel Have you traveled outside of the country in past 3 weeks: No - Coronavirus Screening Are you exhibiting any of the following symptoms?: No Close contact with a COVID-19 positive Pt in past 14-21 Days: No - Vaccine Status Have you recieved a Covid-19 vaccination: Yes T[employer]: [employer] - Vaccination Dates Date of 2cond Vaccination (if applicable): unknown - Review of Systems Constitutional: No Symptoms, No Fever, No Chills Eyes: No Symptoms Ears, Nose, & Throat: No Symptoms Respiratory: No Symptoms, No Cough, No Dyspnea Cardiac: No Symptoms, No Chest Pain, No Edema, No Syncope Abdominal/Gastrointestinal: No Symptoms, No Abdominal Pain, No Nausea, No Vomiting, No Diarrhea Genitourinary Symptoms: No Symptoms, No Dysuria Musculoskeletal: No Symptoms, No Back Pain, No Neck Pain Skin: No Symptoms, No Rash Neurological: No Symptoms, No Dizziness, No Focal Weakness, No Sensory Changes Psychological: No Symptoms Endocrine: No Symptoms Hematologic/Lymphatic: No Symptoms Immunological/Allergic: No Symptoms All Other Systems: Reviewed and Negative - Past Medical History Pertinent Past Medical History: Yes ENT History: Cataracts Cardiac History: Congestive Heart Failure Respiratory History: CHF, COPD, Pneumonia, Pulmonary Embolism Musculoskeletal History: Arthritis GI Medical History: No Pertinent History History: No Pertinent History Psycho-Social History: No Pertinent History Male Reproductive Disorders: No Pertinent History - Past Surgical History Past Surgical History: Yes Neuro Surgical History: No Pertinent History Cardiac: Cardiac Catheterization Gastrointestinal: Appendectomy Musculoskeletal: Orthopedic Surgery Other Surgical History: fatty tumor off chest, r rotator cuff shoulder - Social History Smoking Status: Former smoker Exposure to second hand smoke: No Drug Use: none Patient Lives Alone: No - Nursing Vital Signs Nursing Vital Signs: Initial Vital Signs Temperature 97.2 F 05/31/22 05:33 Pulse Rate 62 05/31/22 05:33 Respiratory Rate 30 H 05/31/22 05:33 Blood Pressure 119/71 05/31/22 05:33 O2 Sat by Pulse Oximetry 99 05/31/22 05:33 Pain Scale Pain Intensity 0 - Physical Exam General Appearance: no apparent distress, mild distress, alert, other (Pale appearing) Eye Exam: PERRL/EOMI, eyes nml inspection Ears, Nose, Throat Exam: hearing grossly normal, normal ENT inspection, normal pharynx, nasal congestion (Some residual blood in right nare from epistaxis. No active bleeding at this time.) Neck Exam: normal inspection, supple Respiratory Exam: respiratory distress (Tachypneic), airway intact, accessory muscle use, crackles/rales, wheezing Cardiovascular/Chest Exam: normal heart sounds, regular rate/rhythm Abdominal/Gastrointestinal Exam: soft, No tenderness, No distention, No mass Extremity Exam: non-tender, normal range of motion, normal inspection, no calf tenderness, pedal edema (3+ pitting edema bilaterally) Peripheral Pulses Exam: dorsalis-pedis (R): 2+, dorsalis-pedis (L): 2+ Neurologic Exam: alert, oriented x 3, cooperative, substance abuse rn II-XII nml as tested, sensation nml, No motor deficits Skin Exam: normal color, warm, pale, No dry Lymphatic Exam: adenopathy SpO2 Interpretation: normal SpO2: 99 O2 Delivery: Nasal Cannula (3 L nasal cannula) - Course Nursing assessment & vital signs reviewed: Yes EKG Interpreted by Me: RATE (69), A-fib, NORMAL AXIS - Radiology Exams Chest X-ray Interpretation: Interpreted by me (Right hemidiaphragm elevation, normal cardiac silhouette, clear lungs osteopenia normal) Ordered Tests: Active Orders 24 hr Category Date Time Status Parts Interpreter STAT Care 05/31/22 06:03 Active EKG-ER Only STAT Care 05/31/22 06:02 Active IV Insertion STAT Care 05/31/22 06:02 Active Pulse Oximetry (ED) STAT Care 05/31/22 06:02 Active CHEST 1 VIEW (PORTABLE) Stat Exams 05/31/22 06:03 Taken BLOOD CULTURE Stat Lab 05/31/22 06:37 Received CBC W DIFF Stat Lab 05/31/22 06:02 Completed CMP Stat Lab 05/31/22 06:17 Completed NT PRO BNP Stat Lab 05/31/22 06:17 Completed TROPONIN Q4H Lab 05/31/22 06:17 Received TROPONIN Q4H Lab 05/31/22 10:15 Ordered TROPONIN Q4H Lab 05/31/22 14:15 Ordered Medication Summary Discontinued Medications Generic Name Dose Route Start Last Admin Trade Name Freq PRN Reason Stop Dose Admin Furosemide 40 mg 05/31/22 07:18 Furosemide 40 Mg/4 Ml Vial IV 05/31/22 07:19 STAT ONE Lab/Rad Data: Laboratory Result Diagrams 05/31/22 06:02 05/31/22 06:17 Laboratory Results 05/31/22 05/31/22 05/31/22 Range/Units 06:17 06:17 06:02 WBC (4.0-10.5) x10^3/uL RBC (4.1-5.6) x10^6/uL Hgb (12.5-18.0) g/dL Hct (42-50) % MCV (78-100) fL MCH (26-32) pg MCHC (32-36) g/dL RDW (11.5-14.0) % Plt Count (150-450) x10^3/uL MPV (7.5-11.0) fL Gran % (36.0-66.0) % Immature Gran % (Auto) (0.00-0.4) % Nucleat RBC Rel Count (0.00-0.1) % Eos # (Auto) (0-0.5) x10^3/uL Immature Gran # (Auto) (0.00-0.03) x10^3u/L Absolute Lymphs (auto) (1.0-4.6) x10^3/uL Absolute Monos (auto) (0.0-1.3) x10^3/uL Absolute Nucleated RBC (0.00-0.01) x10^3u/L Lymphocytes % (24.0-44.0) % Monocytes % (0.0-12.0) % Eosinophils % (0.00-5.0) % Basophils % (0.0-0.4) % Absolute Granulocytes (1.4-6.9) x10^3/uL Basophils # (0-0.4) x10^3/uL Sodium 137 (137-145) mmol/L Potassium 5.2 H (3.5-5.1) mmol/L Chloride 99 (98-107) mmol/L Carbon Dioxide 30 (22-30) mmol/L Anion Gap 12.9 (5-15) MEQ/L BUN 49 H (9-20) mg/dL Creatinine 1.79 H (0.66-1.25) mg/dL Estimated GFR 38.3 ML/MIN Glucose 117 H (74-106) mg/dL Calcium 8.7 (8.4-10.2) mg/dL Total Bilirubin 2.00 H (0.2-1.3) mg/dL AST 54 (17-59) U/L ALT 44 (0-50) U/L Alkaline Phosphatase 149 H (38-126) U/L Troponin I 0.025 (0.000-0.034) ng/mL NT-Pro-B Natriuret Pep 83230 H (0-1800) pg/mL Serum Total Protein 7.0 (6.3-8.2) g/dL Albumin 3.2 L (3.5-5.0) g/dL Digoxin 1.5 (0.8-1.9) ng/mL 05/31/22 Range/Units 06:02 WBC 7.5 (4.0-10.5) x10^3/uL RBC 3.44 L (4.1-5.6) x10^6/uL Hgb 8.6 L (12.5-18.0) g/dL Hct 29.9 L (42-50) % MCV 86.9 (78-100) fL MCH 25.0 L (26-32) pg MCHC 28.8 L (32-36) g/dL RDW 25.0 H (11.5-14.0) % Plt Count 236 (150-450) x10^3/uL MPV 9.0 (7.5-11.0) fL Gran % 69.7 H (36.0-66.0) % Immature Gran % (Auto) 4.0 H (0.00-0.4) % Nucleat RBC Rel Count 2.1 H (0.00-0.1) % Eos # (Auto) 0.13 (0-0.5) x10^3/uL Immature Gran # (Auto) 0.30 H (0.00-0.03) x10^3u/L Absolute Lymphs (auto) 1.19 (1.0-4.6) x10^3/uL Absolute Monos (auto) 0.61 (0.0-1.3) x10^3/uL Absolute Nucleated RBC 0.16 H (0.00-0.01) x10^3u/L Lymphocytes % 15.9 L (24.0-44.0) % Monocytes % 8.2 (0.0-12.0) % Eosinophils % 1.7 (0.00-5.0) % Basophils % 0.5 (0.0-0.4) % Absolute Granulocytes 5.20 (1.4-6.9) x10^3/uL Basophils # 0.04 (0-0.4) x10^3/uL Sodium (137-145) mmol/L Potassium (3.5-5.1) mmol/L Chloride (98-107) mmol/L Carbon Dioxide (22-30) mmol/L Anion Gap (5-15) MEQ/L BUN (9-20) mg/dL Creatinine (0.66-1.25) mg/dL Estimated GFR ML/MIN Glucose (74-106) mg/dL Calcium (8.4-10.2) mg/dL Total Bilirubin (0.2-1.3) mg/dL AST (17-59) U/L ALT (0-50) U/L Alkaline Phosphatase (38-126) U/L Troponin I (0.000-0.034) ng/mL NT-Pro-B Natriuret Pep (0-1800) pg/mL Serum Total Protein (6.3-8.2) g/dL Albumin (3.5-5.0) g/dL Digoxin (0.8-1.9) ng/mL - Progress Progress: improved Air Movement: good Progress Note: Patient endorsed to Dr. Doty at change of shift. Dr. Doty will review pending labs and make final disposition. Portions of this note were created with voice recognition technology. There may be grammatical, spelling, punctuation or sound alike errors 05/31/22 07:19 Blood Culture(s) Obtained: Yes Counseled pt/family regarding: lab results, diagnosis, rad results - Departure Clinical Impression: Acute renal injury, Elevated brain natriuretic peptide (BNP) level, Hypoalbuminemia, CHF (congestive heart failure), Epistaxis Condition: Stable Critical Care Time: No Referrals: KELY DAUGHERTY [Primary Care Provider] - Follow up/PCP as directed Instructions: Heart Failure
[2022-05-31 06:42] LABS: BASOPHIL % 0.5 % (0.0-0.4); Basophil (Absolute #) 0.04 x10^3/uL (0-0.4); Eosinophil % 1.7 % (0.00-5.0); Eosinophil (Absolute #) 0.13 x10^3/uL (0-0.5); Hematocrit 29.9 % (42-50); Hemoglobin 8.6 g/dL (12.5-18.0); Lymphocyte (Absolute #) 1.19 x10^3/uL (1.0-4.6); Lymphocytes % 15.9 % (24.0-44.0); Mean Cell Volume 86.9 fL (78-100); Mean Corpuscular Hgb Concent. 28.8 g/dL (32-36); Monocyte (Absolute #) 0.61 x10^3/uL (0.0-1.3); Monocytes % 8.2 % (0.0-12.0); NUCLEATED RBC # 0.16 x10^3u/L (0.00-0.01); NUCLEATED RBC % 2.1 % (0.00-0.1); Neutrophil % 69.7 % (36.0-66.0); Platelet Count 236 x10^3/uL (150-450); Red Blood Count 3.44 x10^6/uL (4.1-5.6); White Blood Count 7.5 x10^3/uL (4.0-10.5)
[2022-05-31 07:09] LABS: ALBUMIN 3.2 g/dL (3.5-5.0); ANION GAP 12.9 MEQ/L (5-15); Calcium 8.7 mg/dL (8.4-10.2); Creatinine 1 1.79 mg/dL (0.66-1.25); EST GLOMERULAR FILTRATION RATE 38.3 ML/MIN; Potassium 5.2 mmol/L (3.5-5.1)
[2022-05-31] MEDS ORDERED: Lasix 40 MG/4 ML IV ONE (07:18)
[2022-05-31 07:25] LABS: ABO TYPING A; Antibody Screen NEGATIVE (NEGATIVE); RH TYPING POSITIVE
[2022-05-31] MEDS ORDERED: Lasix 40 MG/4 ML ONE (07:28)
[2022-05-31 07:33] LABS: Slide Review 1 YES
[2022-05-31 08:41] LABS: INFLUENZA A NEGATIVE (NEGATIVE); INFLUENZA B NEGATIVE (NEGATIVE); RESPIRATORY SYNCTIAL VIRUS NEGATIVE (Negative); SARS-CoV-2 Xpert Express NEGATIVE (NEGATIVE)
--- NOTE | 2022-05-31 09:20 | XRAY ---
Indication: Short of breath. Epistaxis. Comparison: May 22, 2022 Portable chest unchanged again demonstrating right hemidiaphragm elevation and right base of subsegmental atelectasis/scarring. Heart not enlarged. No new/acute cardiopulmonary abnormalities.
[2022-05-31] MEDS ORDERED: NEOSYNEPHRINE 0.5% NASAL SPRAY/DROPS ONE (09:43)
[2022-05-31] MEDS ORDERED: Coreg 3.125 MG PO SCH (11:02)
[2022-05-31] MEDS ORDERED: Lanoxin 0.125MG TABLET PO SCH (11:02)
[2022-05-31] MEDS ORDERED: Zofran 4 MG/2 ML VIAL IV PRN (11:02)
[2022-05-31] MEDS: Klor Con PO SCH ×2 (13:17→21:06)
[2022-05-31] MEDS ORDERED: MEDICATION INTERVENTION MC SCH (13:30)
[2022-05-31] MEDS: Cordarone 200 MG PO SCH (13:36)
[2022-05-31] MEDS: Requip 0.5 MG PO SCH (13:36)
[2022-05-31] MEDS ORDERED: Lasix 40 MG/4 ML IV SCH (17:00)
[2022-05-31] MEDS: XARELTO 10 MG TABLET PO SCH (17:23)
[2022-05-31] MEDS ORDERED: NON-FORMULARY ITEM (Rivaroxaban [Xarelto] 15 MG Tablet) PO SCH (18:00)
[2022-05-31] MEDS: Coreg 3.125 MG PO SCH (21:05)
[2022-05-31] MEDS: TYLENOL 325 MG PO PRN (21:05)
[2022-05-31] MEDS: PROVENTIL 2.5 MG/3 ML NEB IH PRN (21:48)
[2022-06-01] MEDS ORDERED: Ativan 2 MG/1 ML VIAL IV ONE (00:04)
[2022-06-01] MEDS: TYLENOL 325 MG PO PRN ×2 (03:40→09:14)
[2022-06-01 05:24] LABS: Absolute Neutrophil Ct (ANC) 5.53 x10^3/uL (1.4-6.9); BASOPHIL % 0.4 % (0.0-0.4); Basophil (Absolute #) 0.03 x10^3/uL (0-0.4); Eosinophil % 2.7 % (0.00-5.0); Eosinophil (Absolute #) 0.21 x10^3/uL (0-0.5); Hematocrit 27.2 % (42-50); Hemoglobin 8.1 g/dL (12.5-18.0); IMMATURE GRAN % 2.6 % (0.00-0.4); Lymphocyte (Absolute #) 1.07 x10^3/uL (1.0-4.6); Lymphocytes % 13.8 % (24.0-44.0); Mean Cell Volume 85.5 fL (78-100); Mean Corpuscular Hemoglobin 25.5 pg (26-32); Mean Corpuscular Hgb Concent. 29.8 g/dL (32-36); Mean Platelet Volume 8.9 fL (7.5-11.0); Monocyte (Absolute #) 0.74 x10^3/uL (0.0-1.3); Monocytes % 9.5 % (0.0-12.0); NUCLEATED RBC # 0.07 x10^3u/L (0.00-0.01); NUCLEATED RBC % 0.9 % (0.00-0.1); Platelet Count 212 x10^3/uL (150-450); Red Blood Count 3.18 x10^6/uL (4.1-5.6); White Blood Count 7.8 x10^3/uL (4.0-10.5)
[2022-06-01 05:39] LABS: ALBUMIN 2.8 g/dL (3.5-5.0); ANION GAP 5.3 MEQ/L (5-15); BILIRUBIN,TOTAL 1.7 mg/dL (0.2-1.3); Calcium 8.5 mg/dL (8.4-10.2); Creatinine 1 1.86 mg/dL (0.66-1.25); EST GLOMERULAR FILTRATION RATE 36.6 ML/MIN; Potassium 4.2 mmol/L (3.5-5.1); Total Protein 6.1 g/dL (6.3-8.2)
[2022-06-01 06:41] LABS: Slide Review 1 YES
[2022-06-01] MEDS: PATIENT OWN MEDICATION IH SCH (06:50)
[2022-06-01] MEDS: PROVENTIL 2.5 MG/3 ML NEB IH PRN (06:50)
[2022-06-01] MEDS ORDERED: Lasix 40 MG/4 ML IV PRN (08:33)
[2022-06-01] MEDS: Lanoxin 0.125MG TABLET PO SCH (09:11)
[2022-06-01] MEDS: Klor Con PO SCH ×2 (09:13→22:05)
[2022-06-01] MEDS: LASIX 20 MG PO SCH (09:13)
[2022-06-01] MEDS: Requip 0.5 MG PO SCH (09:13)
[2022-06-01] MEDS: Coreg 3.125 MG PO SCH ×2 (09:14→22:04)
[2022-06-01] MEDS: Cordarone 200 MG PO SCH (09:18)
[2022-06-01] MEDS: Zaroxolyn 2.5 MG PO SCH (09:19)
[2022-06-01 09:22] LABS: RETICULOCYTE HEMOGLOBIN 21.2 pg (28-38)
[2022-06-01 09:33] LABS: Iron Saturation 3 % (20-39); TIBC 321 ug/dL (261-497)
[2022-06-01 09:45] LABS: Iron 10 ug/dL (49-181)
[2022-06-01] MEDS ORDERED: FLUTICASONE FUROATE 50 MCG IH SCH (10:00)
[2022-06-01] MEDS ORDERED: NON-FORMULARY ITEM (Fluticasone/Umeclidin/Vilanter [Trelegy Ellipta 100-62.5-25] 1 EACH Bl PO SCH (10:00)
[2022-06-01] MEDS ORDERED: NON-FORMULARY ITEM (Amiodarone Hcl [Amiodarone Hcl] 100 MG Tablet) PO SCH (10:00)
[2022-06-01] MEDS ORDERED: NON-FORMULARY ITEM (Albuterol Sulfate [Proair Respiclick] 90 MCG Aer.Pow.Ba) IH SCH (10:00)
[2022-06-01] MEDS: FEOSOL 325 MG PO SCH ×2 (10:53→22:04)
[2022-06-01 10:57] LABS: CROSS MATCH (PRBC) COMPATIBLE (COMPATIBLE)
[2022-06-01] MEDS: Sodium Chloride 0.9% 500 ML 500 ML IV SCH ×2 (11:40→22:04)
[2022-06-01 11:49] LABS: Folate (Folic Acid) 10.3 ng/mL (2.76 - >20)
[2022-06-01] MEDS: VENTOLIN COMMON CANISTER IH SCH (14:57)
[2022-06-01 16:21] LABS: Hematocrit 31.4 % (42-50); Hemoglobin 9.2 g/dL (12.5-18.0)
[2022-06-01] MEDS: XARELTO 10 MG TABLET PO SCH (17:43)
[2022-06-01] MEDS: Ativan 2 MG/1 ML VIAL IV PRN (20:26)
--- NOTE | 2022-06-01 22:53 | XRAY ---
Indication: CHF. Comparison: One day earlier Portable chest demonstrates interval developing right mid lung patchy groundglass airspace disease with tiny bilateral effusions. Heart not enlarged for AP portable technique. Stable chronic right hemidiaphragm elevation.
[2022-06-02] MEDS: Ativan 2 MG/1 ML VIAL IV PRN ×2 (02:31→21:39)
[2022-06-02] MEDS: PROVENTIL 2.5 MG/3 ML NEB IH PRN (04:20)
[2022-06-02 06:44] LABS: Hematocrit 33.1 % (42-50); Hemoglobin 9.4 g/dL (12.5-18.0); Mean Cell Volume 90.2 fL (78-100); Mean Corpuscular Hemoglobin 25.6 pg (26-32); Mean Corpuscular Hgb Concent. 28.4 g/dL (32-36); Mean Platelet Volume 8.5 fL (7.5-11.0); Platelet Count 211 x10^3/uL (150-450); Red Blood Count 3.67 x10^6/uL (4.1-5.6); Red Cell Distribution Width 23.9 % (11.5-14.0); White Blood Count 7.9 x10^3/uL (4.0-10.5)
[2022-06-02 07:20] LABS: ANION GAP 6.2 MEQ/L (5-15); BILIRUBIN,TOTAL 1.5 mg/dL (0.2-1.3); Calcium 8.7 mg/dL (8.4-10.2); Creatinine 1 2.04 mg/dL (0.66-1.25); EST GLOMERULAR FILTRATION RATE 32.9 ML/MIN; Potassium 4.1 mmol/L (3.5-5.1); Total Protein 6.5 g/dL (6.3-8.2)
[2022-06-02 08:55] LABS: Slide Review YES
--- NOTE | 2022-06-02 10:20 | PCM.NOTE ---
Date and Time: 06/02/22 1017 Subjective Assessment: doing ok - Review of Systems Constitutional: No Fever, No Chills Eyes: No Symptoms Ears, Nose, & Throat: No Symptoms Respiratory: No Cough, No Short Of Breath Cardiac: No Chest Pain, No Edema, No Syncope Abdominal/Gastrointestinal: No Abdominal Pain, No Nausea, No Vomiting, No Diarrhea Genitourinary Symptoms: No Dysuria Musculoskeletal: No Back Pain, No Neck Pain Skin: No Rash Neurological: No Dizziness, No Focal Weakness, No Sensory Changes Psychological: No Symptoms Endocrine: No Symptoms Hematologic/Lymphatic: No Symptoms Immunological/Allergic: No Symptoms Objective Exam General Appearance: no apparent distress, alert Neurologic Exam: alert, oriented x 3, cooperative, normal mood/affect, nml cerebellar function, sensation nml, No motor deficits Skin Exam: normal color, warm, dry Eye Exam: PERRL, EOMI, eyes nml inspection Ears, Nose, Throat Exam: normal ENT inspection, pharynx normal, moist mucous membranes Neck Exam: normal inspection, non-tender, supple, full range of motion Respiratory Exam: normal breath sounds, lungs clear, No respiratory distress Cardiovascular Exam: regular rate/rhythm, normal heart sounds Gastrointestinal/Abdomen Exam: soft, No tenderness, No mass Extremity Exam: normal inspection, normal range of motion Back Exam: normal inspection, normal range of motion, No CVA tenderness, No vertebral tenderness Male Genitalia Exam: deferred Rectal Exam: deferred OBJECTIVE DATA Vital Signs: Vital Signs - 24 hr Temp Pulse Resp BP Pulse Ox 06/02/22 08:00 24 06/02/22 07:57 96.9 F 69 24 138/63 97 06/02/22 04:20 77 24 88 L 06/02/22 04:00 97.4 F 77 24 122/55 97 06/02/22 00:00 97.2 F 74 20 112/56 93 L 06/01/22 19:52 61 18 95 06/01/22 19:48 18 06/01/22 18:58 97.0 F 63 18 125/62 96 06/01/22 16:00 96.7 F 55 L 17 127/65 95 06/01/22 11:17 22 06/01/22 11:07 97.3 F 65 22 126/65 97 Pain Assessment - Last Documented Pain Intensity 0 Pain Scale Used 0-10 Pain Scale Intake and Output: Intake & Output 05/30/22 05/31/22 06/01/22 06/02/22 11:59 11:59 11:59 11:59 Intake Total 900 1580 Output Total 500 1100 Balance 400 480 Weight 71.1 kg Lab Results: Lab Results-Last 24 Hours 06/01/22 06/01/22 06/01/22 Range/Units 04:30 06:37 16:00 WBC (4.0-10.5) x10^3/uL RBC (4.1-5.6) x10^6/uL Hgb 9.2 L (12.5-18.0) g/dL Hct 31.4 L (42-50) % MCV (78-100) fL MCH (26-32) pg MCHC (32-36) g/dL RDW (11.5-14.0) % Plt Count (150-450) x10^3/uL MPV (7.5-11.0) fL Sodium (137-145) mmol/L Potassium (3.5-5.1) mmol/L Chloride (98-107) mmol/L Carbon Dioxide (22-30) mmol/L Anion Gap (5-15) MEQ/L BUN (9-20) mg/dL Creatinine (0.66-1.25) mg/dL Estimated GFR ML/MIN Glucose (74-106) mg/dL Calcium (8.4-10.2) mg/dL Total Bilirubin (0.2-1.3) mg/dL AST (17-59) U/L ALT (0-50) U/L Alkaline Phosphatase (38-126) U/L Serum Total Protein (6.3-8.2) g/dL Albumin (3.5-5.0) g/dL Vitamin B12 756 (239-931) pg/mL Folic Acid 10.3 (2.76 - >20) ng/mL Slides for Path Review Crossmatch COMPATIBLE (COMPATIBLE) 06/02/22 06/02/22 Range/Units 06:40 06:40 WBC 7.9 (4.0-10.5) x10^3/uL RBC 3.67 L (4.1-5.6) x10^6/uL Hgb 9.4 L (12.5-18.0) g/dL Hct 33.1 L (42-50) % MCV 90.2 (78-100) fL MCH 25.6 L (26-32) pg MCHC 28.4 L (32-36) g/dL RDW 23.9 H (11.5-14.0) % Plt Count 211 (150-450) x10^3/uL MPV 8.5 (7.5-11.0) fL Sodium 135 L (137-145) mmol/L Potassium 4.1 (3.5-5.1) mmol/L Chloride 96 L (98-107) mmol/L Carbon Dioxide 37 H (22-30) mmol/L Anion Gap 6.2 (5-15) MEQ/L BUN 52 H (9-20) mg/dL Creatinine 2.04 H (0.66-1.25) mg/dL Estimated GFR 32.9 ML/MIN Glucose 114 H (74-106) mg/dL Calcium 8.7 (8.4-10.2) mg/dL Total Bilirubin 1.50 H (0.2-1.3) mg/dL AST 31 (17-59) U/L ALT 37 (0-50) U/L Alkaline Phosphatase 142 H (38-126) U/L Serum Total Protein 6.5 (6.3-8.2) g/dL Albumin 3.0 L (3.5-5.0) g/dL Vitamin B12 (239-931) pg/mL Folic Acid (2.76 - >20) ng/mL Slides for Path Review YES Crossmatch (COMPATIBLE) Radiology Exams: Radiology Procedures Category Date Time Status Portable Chest [CHEST 1 VIEW (PORTABLE)] Stat Exams 06/01/22 15:54 Completed Multi-Disciplinary Progress Notes: Multi-Disciplinary Progress Notes 06/01/22 11:42 Case Management Note by Marlyn Rodrigues REFERRAL FAXED TO [facility]. THEY WILL NEED NOTIFIED AT TIME OF DC AT [phone]. THEY WILL NEED FAXED THE DC INSTRUCTIONS, DC MED LIST AND DC SUMMARY ( IF AVAILABLE) TO [phone] Initialized on 06/01/22 11:42 - END OF NOTE 06/01/22 11:42 Case Management Note by Marlyn Rodrigues S/W PATIENT ABOUT REHAB PLACEMENT- PATIENT REFUSES. I HAVE ASKED 2 SEPARATE OCCASIONS. PATIENT CONTINUES TO REFUSE. PRESENT AT SECOND OCCASION AND DOES NOT WANT TO PUSH THE ISSUES ANYMORE. SHE IS AGREEABLE TO HAVE HHC IN. SHE REPORTS THEY HAVE HAD [facility] BEFORE AND WOULD LIKE THEM BACK. SHE WOULD LIKE HHC TO MANAGE MEDICATIONS THIS IS FREQUENTLY AN AREA THAT CAUSES TENSION AT HOME. REPORTED PATIENT GOT INPATIENT LAST TIME THEY HAD HHC WHEN THEY WERE DOING HIS ADMISSION. I REACHED OUT TO [place] WITH [facility]- SHE REPORTS THEY CAN MANAGE MEDICATIONS AND WILL TRY TO DO MUCH OF ADMISSION WITH POSSIBLE TO TRY NOT TO IRRITATE PATIENT. REFERRAL FAXED AT THIS TIME Initialized on 06/01/22 11:42 - END OF NOTE Assessment/Plan (1) Epistaxis Current Visit: Yes Status: Acute Code(s): R04.0 - EPISTAXIS (2) Acute renal injury Current Visit: Yes Status: Acute Code(s): N17.9 - ACUTE KIDNEY FAILURE, UNSPECIFIED (3) Chronic systolic heart failure Current Visit: Yes Status: Chronic Onset Date: ~07/18/17 Code(s): I50.22 - CHRONIC SYSTOLIC (CONGESTIVE) HEART FAILURE
[2022-06-02] MEDS: Requip 0.5 MG PO SCH (10:46)
[2022-06-02] MEDS: Cordarone 200 MG PO SCH (10:47)
[2022-06-02] MEDS: Lanoxin 0.125MG TABLET PO SCH (10:47)
[2022-06-02] MEDS: Klor Con PO SCH ×2 (10:48→21:37)
[2022-06-02] MEDS: LASIX 20 MG PO SCH (10:49)
[2022-06-02] MEDS: FEOSOL 325 MG PO SCH ×2 (10:49→21:38)
[2022-06-02] MEDS: Coreg 3.125 MG PO SCH ×2 (10:49→21:38)
[2022-06-02] MEDS: VENTOLIN COMMON CANISTER IH SCH ×2 (11:15→15:01)
[2022-06-02] MEDS: PATIENT OWN MEDICATION IH SCH (11:15)
[2022-06-02] MEDS: XARELTO 10 MG TABLET PO SCH (18:13)
[2022-06-02] MEDS: Sodium Chloride 0.9% 1000 ML 1,000 ML IV SCH (18:22)
[2022-06-02] MEDS: TYLENOL 325 MG PO PRN (22:57)
[2022-06-03] MEDS: TYLENOL 325 MG PO PRN ×3 (02:06→21:23)
[2022-06-03 06:11] LABS: Absolute Neutrophil Ct (ANC) 5.46 x10^3/uL (1.4-6.9); BASOPHIL % 0.6 % (0.0-0.4); Basophil (Absolute #) 0.05 x10^3/uL (0-0.4); Eosinophil % 1.5 % (0.00-5.0); Eosinophil (Absolute #) 0.12 x10^3/uL (0-0.5); Hematocrit 31.7 % (42-50); Hemoglobin 9.1 g/dL (12.5-18.0); IMMATURE GRAN # 0.13 x10^3u/L (0.00-0.03); IMMATURE GRAN % 1.7 % (0.00-0.4); Lymphocyte (Absolute #) 1.12 x10^3/uL (1.0-4.6); Lymphocytes % 14.4 % (24.0-44.0); Mean Cell Volume 88.1 fL (78-100); Mean Corpuscular Hemoglobin 25.3 pg (26-32); Mean Corpuscular Hgb Concent. 28.7 g/dL (32-36); Mean Platelet Volume 8.7 fL (7.5-11.0); Monocyte (Absolute #) 0.88 x10^3/uL (0.0-1.3); Monocytes % 11.3 % (0.0-12.0); NUCLEATED RBC # 0.08 x10^3u/L (0.00-0.01); Neutrophil % 70.5 % (36.0-66.0); Platelet Count 228 x10^3/uL (150-450); White Blood Count 7.8 x10^3/uL (4.0-10.5)
[2022-06-03 06:37] LABS: ALBUMIN 2.8 g/dL (3.5-5.0); ANION GAP 6.4 MEQ/L (5-15); BILIRUBIN,TOTAL 1.2 mg/dL (0.2-1.3); Calcium 8.6 mg/dL (8.4-10.2); Creatinine 1 1.7 mg/dL (0.66-1.25); EST GLOMERULAR FILTRATION RATE 40.6 ML/MIN; Potassium 4.2 mmol/L (3.5-5.1); Total Protein 6.3 g/dL (6.3-8.2)
[2022-06-03] MEDS: PROVENTIL 2.5 MG/3 ML NEB IH SCH ×2 (08:07→12:29)
--- NOTE | 2022-06-03 08:08 | PCM.NOTE ---
Date and Time: 06/03/22805 Subjective Assessment: still very lethargic and confused - Review of Systems Constitutional: Lethargy, No Fever, No Chills Eyes: No Symptoms Ears, Nose, & Throat: No Symptoms Respiratory: No Cough, No Short Of Breath Cardiac: No Chest Pain, No Edema, No Syncope Abdominal/Gastrointestinal: No Abdominal Pain, No Nausea, No Vomiting, No Diarrhea Genitourinary Symptoms: No Dysuria Musculoskeletal: No Back Pain, No Neck Pain Skin: No Rash Neurological: No Dizziness, No Focal Weakness, No Sensory Changes Psychological: No Symptoms Endocrine: No Symptoms Hematologic/Lymphatic: No Symptoms Immunological/Allergic: No Symptoms Objective Exam General Appearance: mild distress, alert Neurologic Exam: alert, oriented x 3, cooperative, sensation nml, No motor deficits Skin Exam: normal color, warm, dry Eye Exam: PERRL, EOMI, eyes nml inspection Ears, Nose, Throat Exam: normal ENT inspection, pharynx normal, moist mucous membranes Neck Exam: normal inspection, non-tender, supple, full range of motion Respiratory Exam: normal breath sounds, lungs clear, No respiratory distress Cardiovascular Exam: regular rate/rhythm, normal heart sounds Gastrointestinal/Abdomen Exam: soft, No tenderness, No mass Extremity Exam: normal inspection, normal range of motion Back Exam: normal inspection, normal range of motion, No CVA tenderness, No vertebral tenderness Male Genitalia Exam: deferred Rectal Exam: deferred OBJECTIVE DATA Vital Signs: Vital Signs - 24 hr Temp Pulse Resp BP Pulse Ox 06/03/22 07:34 97.8 F 62 31 H 129/64 95 06/03/22 04:00 98.0 F 62 36 H 124/71 96 06/03/22 00:00 28 H 06/02/22 23:49 97.0 F 71 24 147/74 94 L 06/02/22 21:39 61 13 06/02/22 20:45 32 H 06/02/22 19:02 97.0 F 69 20 145/63 94 L 06/02/22 16:30 98.6 F 67 28 H 131/71 97 06/02/22 11:45 97.1 F 70 24 129/71 95 06/02/22 11:23 24 06/02/22 11:15 68 16 91 L Pain Assessment - Last Documented Pain Intensity 0 Pain Scale Used 0-10 Pain Scale Intake and Output: Intake & Output 05/31/22 06/01/22 06/02/22 06/03/22 11:59 11:59 11:59 11:59 Intake Total 900 1580 816 Output Total 500 1100 1600 Balance 400 480 -784 Weight 71.1 kg Lab Results: Lab Results-Last 24 Hours 06/02/22 06/03/22 06/03/22 Range/Units 06:40 05:30 05:30 WBC 7.8 (4.0-10.5) x10^3/uL RBC 3.60 L (4.1-5.6) x10^6/uL Hgb 9.1 L (12.5-18.0) g/dL Hct 31.7 L (42-50) % MCV 88.1 (78-100) fL MCH 25.3 L (26-32) pg MCHC 28.7 L (32-36) g/dL RDW 24.0 H (11.5-14.0) % Plt Count 228 (150-450) x10^3/uL MPV 8.7 (7.5-11.0) fL Gran % 70.5 H (36.0-66.0) % Immature Gran % (Auto) 1.7 H (0.00-0.4) % Nucleat RBC Rel Count 1.0 H (0.00-0.1) % Eos # (Auto) 0.12 (0-0.5) x10^3/uL Immature Gran # (Auto) 0.13 H (0.00-0.03) x10^3u/L Absolute Lymphs (auto) 1.12 (1.0-4.6) x10^3/uL Absolute Monos (auto) 0.88 (0.0-1.3) x10^3/uL Absolute Nucleated RBC 0.08 H (0.00-0.01) x10^3u/L Lymphocytes % 14.4 L (24.0-44.0) % Monocytes % 11.3 (0.0-12.0) % Eosinophils % 1.5 (0.00-5.0) % Basophils % 0.6 (0.0-0.4) % Absolute Granulocytes 5.46 (1.4-6.9) x10^3/uL Basophils # 0.05 (0-0.4) x10^3/uL Sodium 137 (137-145) mmol/L Potassium 4.2 (3.5-5.1) mmol/L Chloride 97 L (98-107) mmol/L Carbon Dioxide 37 H (22-30) mmol/L Anion Gap 6.4 (5-15) MEQ/L BUN 46 H (9-20) mg/dL Creatinine 1.70 H (0.66-1.25) mg/dL Estimated GFR 40.6 ML/MIN Glucose 111 H (74-106) mg/dL Calcium 8.6 (8.4-10.2) mg/dL Total Bilirubin 1.20 (0.2-1.3) mg/dL AST 26 (17-59) U/L ALT 31 (0-50) U/L Alkaline Phosphatase 130 H (38-126) U/L Serum Total Protein 6.3 (6.3-8.2) g/dL Albumin 2.8 L (3.5-5.0) g/dL Slides for Path Review YES Radiology Exams: Radiology Procedures Category Date Time Status Portable Chest [CHEST 1 VIEW (PORTABLE)] Stat Exams 06/01/22 15:54 Completed Multi-Disciplinary Progress Notes: Multi-Disciplinary Progress Notes 06/02/22 12:16 Respiratory Note by Khushbu Hinojosa Changed Albuterol MDI to albuterol neb with same schedule. Pt is confused and unable to do MDI properly. Also, stopped home Trelegy for same reason. Initialized on 06/02/22 12:16 - END OF NOTE Assessment/Plan (1) Acute exacerbation of chronic obstructive pulmonary disease (COPD) Current Visit: Yes Status: Acute Onset Date: ~07/18/17 Code(s): J44.1 - CHRONIC OBSTRUCTIVE PULMONARY DISEASE W (ACUTE) EXACERBATION (2) Epistaxis Current Visit: Yes Status: Resolved Assessment & Plan: Chief Complaint Diagnosis CHF, epistaxis Allergies Allergy/AdvReac Type Severity Reaction Status Date / Time codeine AdvReac Verified 05/31/22 06:02 Vital Signs (Last 24 hours) Temp Pulse Resp BP Pulse Ox 06/03/22 07:34 97.8 F 62 31 H 129/64 95 06/03/22 04:00 98.0 F 62 36 H 124/71 96 06/03/22 00:00 28 H 06/02/22 23:49 97.0 F 71 24 147/74 94 L 06/02/22 21:39 61 13 06/02/22 20:45 32 H 06/02/22 19:02 97.0 F 69 20 145/63 94 L 06/02/22 16:30 98.6 F 67 28 H 131/71 97 06/02/22 11:45 97.1 F 70 24 129/71 95 06/02/22 11:23 24 06/02/22 11:15 68 16 91 L Home Medications Medication Instructions Recorded Confirmed Last Taken Type Albuterol 2.5 mg/3 ml Neb 1 ampul IH Q4H PRN PRN 05/31/22 05/31/22 Unknown History [Proventil 2.5 mg/3 ml Neb] Albuterol Sulfate [Proair 90 mcg IH DAILY 05/31/22 05/31/22 05/30/22 History Respiclick] Amiodarone HCl 50 mg PO DAILY 05/31/22 05/31/22 05/30/22 History Digoxin 0.125 mg Tablet 0.5 tab PO DAILY 05/31/22 05/31/22 05/30/22 History [Lanoxin 0.125MG TABLET] Fluticasone Furoate [Arnuity 2 puffs IH DAILY 05/31/22 05/31/22 05/30/22 History Ellipta] Metolazone 2.5 mg [Zaroxolyn 2.5 2.5 mg PO UD 05/31/22 05/31/22 05/30/22 History MG] Rivaroxaban [Xarelto] 15 mg PO EVENING MEAL 05/31/22 05/31/22 05/30/22 History Ropinirole HCl 1 mg PO DAILY 05/31/22 05/31/22 05/30/22 History Current Medications Generic Name Dose Route Start Last Admin Trade Name Freq PRN Reason Stop Dose Admin Acetaminophen 650 mg 05/31/22 11:02 06/03/22 02:06 Acetaminophen 325 Mg Tablet PO 06/30/22 11:01 650 mg Q4H PRN PRN Administration PAIN, FEVER, HEADACHE Albuterol Sulfate 2.5 mg 06/03/22 07:00 Albuterol Sulfate 2.5 Mg/3 Ml Neb 07/03/22 06:59 QAM DIMPLE Amiodarone HCl 50 mg 05/31/22 14:00 06/02/22 10:47 Amiodarone Hcl 200 Mg Tab PO 06/30/22 13:59 50 mg DAILY DIMPLE Administration Carvedilol 3.125 mg 05/31/22 22:00 06/02/22 21:38 Carvedilol 3.125 Mg Tablet PO 06/30/22 21:59 3.125 mg BID DIMPLE Administration Digoxin 0.0625 mg 06/01/22 10:00 06/02/22 10:47 Digoxin 0.125 Mg Tablet PO 07/01/22 09:59 0.0625 mg DAILY DIMPLE Administration Ferrous Sulfate 325 mg 06/01/22 11:00 06/02/22 21:38 Ferrous Sulfate 325 Mg Tablet PO 07/01/22 10:59 325 mg BID DIMPLE Administration Furosemide 20 mg 06/01/22 10:00 06/02/22 10:49 Furosemide 20 Mg Tablet PO 07/01/22 09:59 20 mg DAILY DIMPLE Administration Sodium Chloride 1,000 mls @ 50 mls/hr 06/02/22 13:45 06/02/22 18:22 Sodium Chloride 0.9% 1000 Ml IV 07/02/22 13:44 50 mls/hr .Q20H DIMPLE Administration Lorazepam 1 mg 06/01/22 20:13 06/02/22 21:39 Lorazepam 2 Mg/1 Ml 2 Mg Vial IV 07/01/22 20:12 0.5 mg Q6H PRN PRN Administration ANXIETY Metolazone 2.5 mg 06/01/22 10:00 06/01/22 09:19 Metolazone 2.5 Mg Tablet PO 07/01/22 09:59 2.5 mg MoWeFr DIMPLE Administration Ondansetron HCl 4 mg 05/31/22 11:02 Ondansetron Hcl 4 Mg/2 Ml Vial IV 06/30/22 11:01 Q6H PRN PRN NAUSEA/VOMITING Potassium Chloride 20 meq 05/31/22 14:00 06/02/22 21:37 Potassium Chloride Tab 10 Meq Tab PO 06/30/22 13:59 20 meq BID DIMPLE Administration Rivaroxaban 15 mg 05/31/22 18:00 06/02/22 18:13 Rivaroxaban 10 Mg Tablet PO 06/30/22 17:59 15 mg EVENING MEAL DIMPLE Administration Ropinirole HCl 1 mg 05/31/22 14:00 06/02/22 10:46 Ropinirole Hcl 0.5 Mg Tablet PO 06/30/22 13:59 1 mg DAILY DIMPLE Administration Discontinued Medications Generic Name Dose Route Start Last Admin Trade Name Freq PRN Reason Stop Dose Admin Albuterol Sulfate 2.5 mg 05/31/22 13:08 06/02/22 04:20 Albuterol Sulfate 2.5 Mg/3 Ml Neb 06/30/22 13:07 2.5 mg Q4H PRN PRN Administration SHORTNESS OF BREATH Albuterol Sulfate 2 puff 05/31/22 14:00 06/02/22 11:15 Albuterol Common Canister Inhaler 06/30/22 13:59 2 puff 0700 DIMPLE Administration Carvedilol 3.125 mg 05/31/22 11:02 05/31/22 12:05 Carvedilol 3.125 Mg Tablet PO 06/30/22 11:01 3.125 mg DAILY DIMPLE Administration Digoxin 0.125 mg 05/31/22 11:02 05/31/22 12:05 Digoxin 0.125 Mg Tablet PO 06/30/22 11:01 0.125 mg DAILY DIMPLE Administration Furosemide 40 mg 05/31/22 07:18 05/31/22 07:39 Furosemide 40 Mg/4 Ml Vial IV 05/31/22 07:19 40 mg STAT ONE Administration Furosemide Confirm 05/31/22 07:28 Furosemide 40 Mg/4 Ml Vial Administered 05/31/22 07:29 Dose 40 mg .ROUTE .STK-MED ONE Furosemide 40 mg 05/31/22 17:00 Furosemide 40 Mg/4 Ml Vial IV 06/30/22 16:59 BID DIURETIC DIMPLE Furosemide 40 mg 06/01/22 08:33 06/01/22 14:23 Furosemide 40 Mg/4 Ml Vial IV 06/01/22 23:00 40 mg AFTER LAST UNIT PRN Administration SHORTNESS OF BREATH Sodium Chloride 500 mls @ 50 mls/hr 06/01/22 09:30 06/01/22 22:04 Sodium Chloride 0.9% 500 Ml IV 06/01/22 22:00 Not Given .Q10H DIMPLE Lorazepam 0.25 mg 06/01/22 00:04 06/01/22 00:33 Lorazepam 2 Mg/1 Ml 2 Mg Vial IV 06/01/22 00:05 0.25 mg 1XONLY ONE Administration Miscellaneous Information 1 each 05/31/22 13:30 Medication Intervention 1 Each Each 06/30/22 13:29 .RT TO CHECK DIMPLE Trelegy Ellipta 1 each 06/01/22 07:00 06/02/22 11:15 Inhaler IH 07/01/22 06:59 1 each 0700 DIMPLE Administration Phenylephrine HCl Confirm 05/31/22 09:43 Neosynephrine 0.5% Nasal [place]/Drops Administered 05/31/22 09:44 Dose 15 ml .ROUTE .STK-MED ONE Intake & Output (Last 24 hours) 05/31/22 06/01/22 06/02/22 06/03/22 11:59 11:59 11:59 11:59 Intake Total 900 1580 816 Output Total 500 1100 1600 Balance 400 480 -784 Weight 71.1 kg Laboratory Results (Last 24 hours) 06/03/22 06/03/22 06/02/22 05:30 05:30 06:40 WBC 7.8 RBC 3.60 L Hgb 9.1 L Hct 31.7 L MCV 88.1 MCH 25.3 L MCHC 28.7 L RDW 24.0 H Plt Count 228 MPV 8.7 Gran % 70.5 H Immature Gran % (Auto) 1.7 H Nucleat RBC Rel Count 1.0 H Eos # (Auto) 0.12 Immature Gran # (Auto) 0.13 H Absolute Lymphs (auto) 1.12 Absolute Monos (auto) 0.88 Absolute Nucleated RBC 0.08 H Lymphocytes % 14.4 L Monocytes % 11.3 Eosinophils % 1.5 Basophils % 0.6 Absolute Granulocytes 5.46 Basophils # 0.05 Sodium 137 Potassium 4.2 Chloride 97 L Carbon Dioxide 37 H Anion Gap 6.4 BUN 46 H Creatinine 1.70 H Estimated GFR 40.6 Glucose 111 H Calcium 8.6 Total Bilirubin 1.20 AST 26 ALT 31 Alkaline Phosphatase 130 H Serum Total Protein 6.3 Albumin 2.8 L Slides for Path Review YES Orders (Last 24 hours) Category Date Time Status CBC W DIFF AM.LAB Lab 06/03/22 05:30 Completed CMP AM.LAB Lab 06/03/22 05:30 Completed Albuterol 2.5 mg/3 ml Neb [Proventil 2.5 mg/3 ml Neb Med 06/03/22 07:00 Active ] 2.5 mg IH QAM NaCl 0.9% 1000 ml [Sodium Chloride 0.9% 1000 ML] 1,000 Med 06/02/22 13:45 Active ml IV 50 mls/hr OT Eval and Treat ( Order) ROUTINE OT 06/02/22 14:52 Active PT Eval & Treat ( Order) ONCE PT 06/02/22 14:51 Active Speech Therapy Eval & Treat [ST Eval & Treat ( Order) ST 06/02/22 13:35 Active ] .as ordered Patient Care Notes (Last 24 hours) 06/02/22 23:35 Nursing Note by Galina Garrido PT CONTINUES TO HOLLER OUT FOR "HOLLY" AND " MOMMA". UNABLE TO REDIRECT PT. PT HAS PULLED ON LOZANO CATHETER TUBING, AND REMOVED 2 CATH SECURES, SO COBAN USED TO WRAP AROUND LEG TO SECURE CATHETER TUBING.PT ALSO HOLLERING "GET ME UP" PT WAS READJUSTED IN BED. NURSES HAVE BEEN AT BEDSIDE MULTIPLE TIMES EACH HOUR TO REPLACE NASAL CANULA IN PT'S NOSE, AND MAKE SURE HE WASN'T PULLING ON LOZANO CATHETER TUBING. ATIVAN IV WAS GIVEN PREVIOUSLY IN SHIFT ORDERED, BUT HAS NOT HELPED PT RELAX. NURSE NOW SITTING AT PT'S BEDSIDE. Initialized on 06/02/22 23:35 - END OF NOTE 06/02/22 12:16 Respiratory Note by Khushbu Hinojosa Changed Albuterol MDI to albuterol neb with same schedule. Pt is confused and unable to do MDI properly. Also, stopped home Trelegy for same reason. Initialized on 06/02/22 12:16 - END OF NOTE 06/02/22 10:04 Nursing Note by Anette Carroll Patient keeps removing nasal cannula. Initialized on 06/02/22 10:04 - END OF NOTE Code(s): R04.0 - EPISTAXIS (3) Acute renal injury Current Visit: Yes Status: Resolved Code(s): N17.9 - ACUTE KIDNEY FAILURE, UNSPECIFIED (4) Chronic systolic heart failure Current Visit: Yes Status: Chronic Onset Date: ~07/18/17 Code(s): I50.22 - CHRONIC SYSTOLIC (CONGESTIVE) HEART FAILURE (5) Hypoalbuminemia Current Visit: Yes Status: Acute Code(s): E88.09 - [facility] DISORDERS OF PLASMA- PROTEIN METABOLISM, NEC
[2022-06-03 09:17] LABS: Slide Review 1 YES
[2022-06-03] MEDS: Klor Con PO SCH ×3 (11:43→23:31)
[2022-06-03] MEDS: LASIX 20 MG PO SCH ×2 (11:43→12:23)
[2022-06-03] MEDS: FEOSOL 325 MG PO SCH ×3 (11:43→23:31)
[2022-06-03] MEDS: Lanoxin 0.125MG TABLET PO SCH (11:44)
[2022-06-03] MEDS: Requip 0.5 MG PO SCH ×2 (11:44→15:00)
[2022-06-03] MEDS: Coreg 3.125 MG PO SCH ×2 (11:45→23:31)
[2022-06-03] MEDS: Cordarone 200 MG PO SCH (11:45)
[2022-06-03] MEDS: Lasix 20 MG/2 ML IV SCH (12:43)
[2022-06-03] MEDS: zyPREXA 5MG TABLET PO PRN (16:25)
[2022-06-03] MEDS: XARELTO 10 MG TABLET PO SCH (18:46)
[2022-06-04] MEDS: PROVENTIL 2.5 MG/3 ML NEB IH SCH (07:34)
[2022-06-04] MEDS: Klor Con PO SCH (08:27)
[2022-06-04] MEDS: Requip 0.5 MG PO SCH (08:27)
[2022-06-04] MEDS: Cordarone 200 MG PO SCH (08:28)
[2022-06-04] MEDS: Coreg 3.125 MG PO SCH (08:28)
[2022-06-04] MEDS: FEOSOL 325 MG PO SCH (08:31)
[2022-06-04] MEDS: Lanoxin 0.125MG TABLET PO SCH (08:31)
[2022-06-04] MEDS: Lasix 20 MG/2 ML IV SCH (08:33)
[2022-06-04 10:44] LABS: PROCALCITONIN 0.142 ng/mL (0.030-0.080); T4 (Thyroxine) 4.85 ug/dL (5.53-10.96); TSH, 3RD Generation 18.9 mIU/L (0.47-4.68)
[2022-06-04] MEDS: Zaroxolyn 2.5 MG PO SCH (11:24)
--- NOTE | 2022-06-04 12:01 | XRAY ---
Indication: Altered mental status over weaken. No known injury. Multiple contiguous axial images obtained through the head without contrast. Comparison: None Age-appropriate global atrophy and minimal periventricular degenerative micro-ischemia bilaterally. 1.2 cm focus old infarct left basal ganglia. No acute intracranial hemorrhage, abnormal extra-axial fluid collection, or mass effect. Fourth ventricle is midline without hydrocephalus. Bony calvarium intact. Visualized paranasal sinuses and mastoid air cells are clear. Impression: Nonacute senile brain. Small remote infarct left basal ganglia.
--- NOTE | 2022-06-04 14:18 | PCM.NOTE ---
Date and Time: 06/04/22 1416 Subjective Assessment: Patient is confused and agitated today .Concern for Pneumonia.CXR and labs pending. Is being treated for CHF and not on atb. CT Head no acute changes. TSH is elevated and ptn is not on thyroid meds. OBJECTIVE DATA Vital Signs: Vital Signs - 24 hr Temp Pulse Resp BP BP Pulse Ox 06/04/22 12:00 20 06/04/22 09:08 106 H 20 100 06/04/22 08:31 70 147/70 06/04/22 07:48 16 06/04/22 07:26 98.0 F 70 16 147/70 89 L 06/04/22 04:00 97.7 F 68 28 H 115/58 99 06/03/22 23:27 97.3 F 66 26 H 128/75 96 06/03/22 19:24 97.1 F 65 24 117/56 94 L 06/03/22 19:20 63 24 93 L 06/03/22 16:00 98.0 F 61 16 106/51 95 Pain Assessment - Last Documented Pain Intensity 0 Pain Scale [facility] Intake and Output: Intake & Output 06/02/22 06/03/22 06/04/22 06/05/22 11:59 11:59 11:59 11:59 Intake Total 1580 1176 1249 60 Output Total 1100 1600 1925 Balance 480 -418 -699 60 Lab Results: Lab Results-Last 24 Hours 06/04/22 Range/Units 09:21 NT-Pro-B Natriuret Pep 9670 H (0-1800) pg/mL Vitamin B12 884 (239-931) pg/mL Procalcitonin 0.142 H (0.030-0.080) ng/mL Thyroxine (T4) 4.85 L (5.53-10.96) ug/dL TSH 3rd Generation 18.900 H (0.47-4.68) mIU/L Radiology Exams: Radiology Procedures Category Date Time Status CHEST 1 VIEW (PORTABLE) Urgent Exams 06/04/22 14:15 Ordered HEAD WITHOUT CONTRAST [CT] Urgent Exams 06/04/22 09:05 Completed Multi-Disciplinary Progress Notes: Multi-Disciplinary Progress Notes 06/04/22 11:33 Occupational Therapy Note by Ginger Restrepo OCCUPATIONAL THERAPY ATTEMPT: PER NURSING STAFF, PATIENT VERY RESTLESS THIS MORNING AND OVERALL SIGNIFICANT WEAKNESS. PATIENT TAKEN OUT OF ROOM AT APPROXIMATELY 11:[address] SCAN. OT WILL FOLLOW UP APPROPRIATE TO COMPLETE EVALUATION. Initialized on 06/04/22 11:33 - END OF NOTE
[2022-06-04] MEDS: Hydromorphone 1 mg/ml Injection IV PRN (14:40)
[2022-06-04] MEDS: Zithromax 500 MG/ 250 ML NaCl Premix 500 MG/250 ML IVPB IV SCH (15:41)
[2022-06-04] MEDS: zyPREXA 5MG TABLET PO PRN (16:06)
--- NOTE | 2022-06-04 16:13 | XRAY ---
Indication: Increasing confusion. Comparison: June 01, 2022 Portable chest demonstrates worsening diffuse right lung and new diffuse left lung ground glass airspace disease. Also worsening moderate right and small left effusions. Heart not enlarged for AP portable technique.
[2022-06-04] MEDS: ROCEPHIN 1 Gm-D5w 50 ml Bag** 1 G/50 ML IVPB IV SCH (16:46)
[2022-06-04] MEDS: XARELTO 10 MG TABLET PO SCH (18:19)
[2022-06-05] MEDS: FEOSOL 325 MG PO SCH ×2 (00:12→11:28)
[2022-06-05] MEDS: Coreg 3.125 MG PO SCH ×2 (00:12→12:26)
[2022-06-05] MEDS: zyPREXA 5MG TABLET PO SCH ×4 (00:13→18:35)
[2022-06-05] MEDS: Klor Con PO SCH ×2 (00:13→11:28)
[2022-06-05] MEDS: Hydromorphone 1 mg/ml Injection IV PRN ×2 (00:52→04:56)
[2022-06-05] MEDS ORDERED: SYNTHROID 50 MCG PO SCH (07:00)
[2022-06-05] MEDS: PROVENTIL 2.5 MG/3 ML NEB IH SCH (07:38)
[2022-06-05] MEDS: ROCEPHIN 1 Gm-D5w 50 ml Bag** 1 G/50 ML IVPB IV SCH (08:48)
[2022-06-05] MEDS: Lasix 20 MG/2 ML IV SCH ×2 (08:49→23:21)
[2022-06-05] MEDS: Zithromax 500 MG/ 250 ML NaCl Premix 500 MG/250 ML IVPB IV SCH (10:08)
[2022-06-05 10:50] LABS: Absolute Neutrophil Ct (ANC) 8.16 x10^3/uL (1.4-6.9); BASOPHIL % 0.5 % (0.0-0.4); Basophil (Absolute #) 0.05 x10^3/uL (0-0.4); Eosinophil % 0.1 % (0.00-5.0); Eosinophil (Absolute #) 0.01 x10^3/uL (0-0.5); Hematocrit 38.6 % (42-50); Hemoglobin 10.5 g/dL (12.5-18.0); IMMATURE GRAN # 0.46 x10^3u/L (0.00-0.03); IMMATURE GRAN % 4.4 % (0.00-0.4); Lymphocyte (Absolute #) 0.75 x10^3/uL (1.0-4.6); Lymphocytes % 7.1 % (24.0-44.0); Mean Cell Volume 94.1 fL (78-100); Mean Corpuscular Hemoglobin 25.6 pg (26-32); Mean Corpuscular Hgb Concent. 27.2 g/dL (32-36); Mean Platelet Volume 8.5 fL (7.5-11.0); Monocyte (Absolute #) 1.09 x10^3/uL (0.0-1.3); Monocytes % 10.4 % (0.0-12.0); NUCLEATED RBC # 0.15 x10^3u/L (0.00-0.01); NUCLEATED RBC % 1.4 % (0.00-0.1); Neutrophil % 77.5 % (36.0-66.0); Platelet Count 259 x10^3/uL (150-450); White Blood Count 10.5 x10^3/uL (4.0-10.5)
[2022-06-05 10:57] LABS: ALBUMIN 3.3 g/dL (3.5-5.0); BILIRUBIN,TOTAL 1.4 mg/dL (0.2-1.3); Creatinine 1 2.04 mg/dL (0.66-1.25); EST GLOMERULAR FILTRATION RATE 32.9 ML/MIN; Potassium 5.4 mmol/L (3.5-5.1); Total Protein 7.2 g/dL (6.3-8.2)
[2022-06-05 11:19] LABS: PROCALCITONIN 0.3 ng/mL (0.030-0.080)
[2022-06-05 11:23] LABS: Bilirubin Small (Negative); Blood Large (Negative); Glucose, Urine Negative (Negative); Ketones Negative (Negative); Leukocyte Esterase Small (Negative); Nitrite Negative (Negative); Protein,Urine Dip 300 (Negative)
[2022-06-05 11:25] LABS: Appearance Cloudy (Clear)
[2022-06-05 11:26] LABS: ADD URINE CULTURE? YES (NO); Bacteria Moderate /HPF (None Seen); Epithelial Cells None Seen /HPF (None Seen); RBC >100 /HPF (0-5)
[2022-06-05 11:28] LABS: ANION GAP 15.4 MEQ/L (5-15)
[2022-06-05] MEDS: Synthroid 200 MCG INJECTION IV SCH (11:33)
[2022-06-05 12:04] LABS: Slide Review 1 YES
[2022-06-05] MEDS: Requip 0.5 MG PO SCH (12:26)
[2022-06-05] MEDS: Cordarone 200 MG PO SCH (12:27)
[2022-06-05] MEDS: Lanoxin 0.125MG TABLET PO SCH (12:27)
[2022-06-05] MEDS: Sodium Chloride 0.9% 1000 ML 1,000 ML IV SCH ×5 (14:25→23:26)
[2022-06-05] MEDS ORDERED: ROCEPHIN 1 Gm-D5w 50 ml Bag** 1 G/50 ML IVPB IV SCH (15:00)
[2022-06-05] MEDS: XARELTO 10 MG TABLET PO SCH (19:15)
[2022-06-05] MEDS ORDERED: ENOXAPARIN SODIUM SQ SCH (22:00)
[2022-06-05] MEDS: Ativan 2 MG/1 ML VIAL IV PRN (23:44)
[2022-06-06] MEDS: Coreg 3.125 MG PO SCH ×3 (00:21→21:38)
[2022-06-06] MEDS: FEOSOL 325 MG PO SCH ×3 (00:22→21:40)
[2022-06-06] MEDS: Klor Con PO SCH ×3 (00:22→21:40)
[2022-06-06] MEDS: zyPREXA 5MG TABLET PO SCH ×2 (00:22→14:07)
[2022-06-06 04:58] LABS: Absolute Neutrophil Ct (ANC) 12.69 x10^3/uL (1.4-6.9); BASOPHIL % 0.5 % (0.0-0.4); Basophil (Absolute #) 0.07 x10^3/uL (0-0.4); Eosinophil (Absolute #) 0 x10^3/uL (0-0.5); Hematocrit 37.4 % (42-50); Hemoglobin 10.3 g/dL (12.5-18.0); IMMATURE GRAN # 0.48 x10^3u/L (0.00-0.03); IMMATURE GRAN % 3.1 % (0.00-0.4); Lymphocyte (Absolute #) 1.13 x10^3/uL (1.0-4.6); Lymphocytes % 7.3 % (24.0-44.0); Mean Corpuscular Hemoglobin 25.6 pg (26-32); Mean Corpuscular Hgb Concent. 27.5 g/dL (32-36); Mean Platelet Volume 8.8 fL (7.5-11.0); Monocyte (Absolute #) 1.05 x10^3/uL (0.0-1.3); Monocytes % 6.8 % (0.0-12.0); NUCLEATED RBC % 1.9 % (0.00-0.1); Neutrophil % 82.3 % (36.0-66.0); Platelet Count 258 x10^3/uL (150-450); Red Blood Count 4.02 x10^6/uL (4.1-5.6); Red Cell Distribution Width 24.3 % (11.5-14.0); White Blood Count 15.4 x10^3/uL (4.0-10.5)
[2022-06-06 05:31] LABS: ALBUMIN 3.2 g/dL (3.5-5.0); ANION GAP 13.3 MEQ/L (5-15); BILIRUBIN,TOTAL 1.4 mg/dL (0.2-1.3); Calcium 8.5 mg/dL (8.4-10.2); Creatinine 1 2.44 mg/dL (0.66-1.25); EST GLOMERULAR FILTRATION RATE 26.8 ML/MIN; PROCALCITONIN 0.819 ng/mL (0.030-0.080); Potassium 5.4 mmol/L (3.5-5.1); Total Protein 7.1 g/dL (6.3-8.2)
[2022-06-06] MEDS: Ativan 2 MG/1 ML VIAL IV PRN ×2 (06:56→20:59)
[2022-06-06] MEDS: PROVENTIL 2.5 MG/3 ML NEB IH SCH (07:00)
[2022-06-06 07:18] LABS: Slide Review 1 YES
[2022-06-06] MEDS ORDERED: PHARMACY DOSING REQUEST MC ONE (08:00)
[2022-06-06] MEDS: Requip 0.5 MG PO SCH (09:00)
[2022-06-06] MEDS ORDERED: PHARMACY DOSING REQUIRED: VANCOMYCIN IV STA (09:07)
[2022-06-06] MEDS ORDERED: VANCOCIN 500 MG VIAL*** 500 MG in Sodium Chloride 100ML MINI-BAG PLUS 100 ML IV SCH (10:00)
[2022-06-06] MEDS: Synthroid 200 MCG INJECTION IV SCH (10:11)
[2022-06-06] MEDS: Piperacillin/Tazobactam 2.25 GM 2.25 GM in Sodium Chloride 100ML MINI-BAG PLUS 100 ML IV SCH ×2 (11:27→20:59)
[2022-06-06] MEDS: Lanoxin 0.125MG TABLET PO SCH (11:59)
[2022-06-06] MEDS ORDERED: PIPERACILLIN/TAZOBACTAM 3.375 GM in Sodium Chloride 100ML MINI-BAG PLUS 100 ML IV SCH (12:00)
[2022-06-06] MEDS: Zaroxolyn 2.5 MG PO SCH (12:00)
[2022-06-06] MEDS: Lasix 20 MG/2 ML IV SCH (13:59)
[2022-06-06] MEDS: Sodium Chloride 0.9% 1000 ML 1,000 ML IV SCH (14:06)
[2022-06-06] MEDS: Cordarone 200 MG PO SCH (14:07)
[2022-06-06] MEDS ORDERED: zyPREXA 5MG TABLET PO PRN (15:00)
[2022-06-06] MEDS: solu-MEDROL 60 MG, Sterile H2O 10 ml 2 ML IV SCH ×4 (15:17→21:45)
[2022-06-06] MEDS ORDERED: ENOXAPARIN SODIUM SQ SCH (22:00)
[2022-06-07] MEDS: solu-MEDROL 60 MG, Sterile H2O 10 ml 2 ML IV SCH ×2 (03:09)
[2022-06-07] MEDS: Piperacillin/Tazobactam 2.25 GM 2.25 GM in Sodium Chloride 100ML MINI-BAG PLUS 100 ML IV SCH (03:31)
[2022-06-07 04:35] VITALS: PULSE 0
[2022-06-07 04:59] VITALS: BP 129/64; O2SAT 96
[2022-06-07] MEDS ORDERED: Lasix 40 MG/4 ML IV SCH (10:00)
[2022-06-07 11:09] LABS: HBsAg Screen Negative (Negative); HCV Ab Non Reactive (Non Reactive); Hep A Ab, IgM Negative (Negative); Hep B Core Ab, IgM Negative (Negative)
[2022-06-08] MEDS ORDERED: TROUGH DRUG LEVELS IJ ONE (09:30)
--- NOTE | 2022-06-14 17:27 | PCM.HP ---
History of Present Illness - Chief Complaint Chief Complaint: altered mental status for 1-2 days History of Present Illness: is a 87 year old male.presents emergency department with his for evaluation of a nosebleed. However patient also mentions that he has been experiencing progressive shortness of breath. patient has a history of COPD and congestive heart failure. Patient's menhaden vessel pilot is Dr. Montiel. Primary care doctor is Dr. Daugherty. Symptoms have been progressive. Symptoms are moderate in intensity. No specific worsening improving factors. Patient voices no other complaints or concerns at this time. Timing/Duration: today Activities at Onset: none Severity of Dyspnea-Max: moderate Severity of Dyspnea-Current: moderate Possible Cause: frequent episodes Modifying Factors: Improves With: activity - Review of Systems Constitutional: Lethargy, Weakness, No Fever, No Chills Eyes: No Symptoms Ears, Nose, & Throat: No Symptoms Respiratory: Cough, Orthopnea, Short Of Breath, Wheezing Cardiac: Edema, Orthopnea, PND, No Chest Pain, No Syncope Abdominal/Gastrointestinal: No Abdominal Pain, No Nausea, No Vomiting, No Diarrhea Genitourinary Symptoms: No Dysuria Musculoskeletal: No Back Pain, No Neck Pain Skin: No Rash Neurological: No Dizziness, No Focal Weakness, No Sensory Changes Psychological: No Symptoms Endocrine: No Symptoms Hematologic/Lymphatic: No Symptoms Immunological/Allergic: No Symptoms Medications & Allergies Home Medications: Home Medication List Furosemide 20 mg PO DAILY 07/18/17 [History Confirmed 05/31/22] Potassium Chloride [Klor-Con M10] 20 meq PO BID 07/18/17 [History Confirmed 05/31/22] carvediloL [Carvedilol] 3.125 mg PO BID 07/18/17 [History Confirmed 05/31/22] Fluticasone/Umeclidin/Vilanter [Trelegy Ellipta 100-62.5-25] 1 puff PO DAILY 12/09/20 [History Confirmed 05/31/22] Albuterol 2.5 mg/3 ml Neb [Proventil 2.5 mg/3 ml Neb] 1 ampul IH Q4H PRN PRN 05/31/22 [History Confirmed 05/31/22] Albuterol Sulfate [Proair Respiclick] 90 mcg IH DAILY 05/31/22 [History Confirmed 05/31/22] Amiodarone HCl 50 mg PO DAILY 05/31/22 [History Confirmed 05/31/22] Digoxin 0.125 mg Tablet [Lanoxin 0.125MG TABLET] 0.5 tab PO DAILY 05/31/22 [History Confirmed 05/31/22] Fluticasone Furoate [Arnuity Ellipta] 2 puffs IH DAILY 05/31/22 [History Confirmed 05/31/22] Metolazone 2.5 mg [Zaroxolyn 2.5 MG] 2.5 mg PO UD 05/31/22 [History Confirmed 05/31/22] Rivaroxaban [Xarelto] 15 mg PO EVENING MEAL 05/31/22 [History Confirmed 05/31/22] Ropinirole HCl 1 mg PO DAILY 05/31/22 [History Confirmed 05/31/22] Allergies/Adverse Reactions: Allergies Allergy/AdvReac Type Severity Reaction Status Date / Time codeine AdvReac Verified 05/31/22 06:02 - Past Medical History Past Medical History: Yes ENT History: Cataracts Cardiac History: Congestive Heart Failure Respiratory History: CHF, COPD, Pneumonia, Pulmonary Embolism Musculoskelatal History: Arthritis GI Medical History: No Pertinent History History: No Pertinent History Pyscho-Social History: No Pertinent History Male Reproductive Disorders: No Pertinent History - Past Surgical History Past Surgical History: Yes Neuro Surgical History: No Pertinent History Cardiac History: Cardiac Catheterization GI Surgical History: Appendectomy Musculskeletal Surgical Hx: Orthopedic Surgery Other Surgical History: fatty tumor off chest, r rotator cuff shoulder - Social History Smoking Status: Former smoker Exposure to second hand smoke: No Alcohol: None Drug Use: none - Physical Exam General Appearance: moderate distress, alert Neurologic Exam: alert, oriented x 3, confusion, No motor deficits Eye Exam: PERRL/EOMI, eyes nml inspection Ears, Nose, Throat Exam: normal ENT inspection, TMs normal, pharynx normal, moist mucous membranes Neck Exam: normal inspection, non-tender, supple, full range of motion Respiratory Exam: diminished breath sounds, crackles/rales, rhonchi, wheezing, No respiratory distress Cardiovascular Exam: irregular, capillary refill 2-3 sec Gastrointestinal/Abdomen Exam: soft, normal bowel sounds, No tenderness, No mass Back Exam: normal inspection, normal range of motion, No CVA tenderness, No vertebral tenderness Extremity Exam: normal inspection, normal range of motion, pelvis stable Skin Exam: normal color, warm, dry, No rash Lymphatic Exam: No adenopathy Results - Labs Lab/Micro Results: Microbiology 06/05/22 11:08 Urine Culture - Final Urine, Void Enterococcus Faecalis 06/05/22 11:08 Urine Culture - Final Urine, Indwelling Catheter Enterococcus Faecalis 05/31/22 06:37 Blood Culture Gram Stain - Final Blood Not Reportable Blood Culture - Final NO GROWTH 05/31/22 06:17 Blood Culture Gram Stain - Final Blood Not Reportable Blood Culture - Final NO GROWTH - Radiology Impressions Radiology Exams & Impressions: RAD/CHEST 1 VIEW (PORTABLE) Indication: Short of breath. Epistaxis. Comparison: May 22, 2022 Portable chest unchanged again demonstrating right hemidiaphragm elevation and right base of subsegmental atelectasis/scarring. Heart not enlarged. No new/acute cardiopulmonary abnormalities. Assessment/Plan (1) Epistaxis Status: Acute Assessment & Plan: Chief Complaint Diagnosis CHF, AMS Allergies Allergy/AdvReac Type Severity Reaction Status Date / Time codeine AdvReac Verified 05/31/22 06:02 Home Medications Medication Instructions Recorded Confirmed Last Taken Type Albuterol 2.5 mg/3 ml Neb 1 ampul IH Q4H PRN PRN 05/31/22 05/31/22 Unknown History [Proventil 2.5 mg/3 ml Neb] Albuterol Sulfate [Proair 90 mcg IH DAILY 05/31/22 05/31/22 05/30/22 History Respiclick] Amiodarone HCl 50 mg PO DAILY 05/31/22 05/31/22 05/30/22 History Digoxin 0.125 mg Tablet 0.5 tab PO DAILY 05/31/22 05/31/22 05/30/22 History [Lanoxin 0.125MG TABLET] Fluticasone Furoate [Arnuity 2 puffs IH DAILY 05/31/22 05/31/22 05/30/22 History Ellipta] Metolazone 2.5 mg [Zaroxolyn 2.5 2.5 mg PO UD 05/31/22 05/31/22 05/30/22 History MG] Rivaroxaban [Xarelto] 15 mg PO EVENING MEAL 05/31/22 05/31/22 05/30/22 History Ropinirole HCl 1 mg PO DAILY 05/31/22 05/31/22 05/30/22 History Current Medications Discontinued Medications Generic Name Dose Route Start Last Admin Trade Name Freq PRN Reason Stop Dose Admin Acetaminophen 650 mg 05/31/22 11:02 06/03/22 21:23 Acetaminophen 325 Mg Tablet PO 06/30/22 11:01 650 mg Q4H PRN PRN Administration PAIN, FEVER, HEADACHE Albuterol Sulfate 2.5 mg 05/31/22 13:08 06/02/22 04:20 Albuterol Sulfate 2.5 Mg/3 Ml [facility] 06/30/22 13:07 2.5 mg Q4H PRN PRN Administration SHORTNESS OF BREATH Albuterol Sulfate 2 puff 05/31/22 14:00 06/02/22 15:01 Albuterol Common Canister Inhaler 06/30/22 13:59 Not Given 0700 [facility] Albuterol Sulfate 2.5 mg 06/03/22 07:00 06/06/22 07:00 Albuterol Sulfate 2.5 Mg/3 Ml [facility] 07/03/22 06:59 2.5 mg QAM DIMPLE Administration Amiodarone HCl 50 mg 05/31/22 14:00 06/06/22 14:07 Amiodarone Hcl 200 Mg Tab PO 06/30/22 13:59 Not Given DAILY DIMPLE Carvedilol 3.125 mg 05/31/22 11:02 05/31/22 12:05 Carvedilol 3.125 Mg Tablet PO 06/30/22 11:01 3.125 mg DAILY DIMPLE Administration Carvedilol 3.125 mg 05/31/22 22:00 06/06/22 21:38 Carvedilol 3.125 Mg Tablet PO 06/30/22 21:59 Not Given BID DIMPLE Methylprednisolone Sodium 0 mg 06/06/22 15:00 06/07/22 03:09 Succinate 60 mg/ Sterile Water IV 07/06/22 14:59 60 mg 2 ml Q6H DIMPLE Administration Device 1 06/08/22 09:30 Therapuetic Drug Level Monitor Each IJ 06/08/22 09:31 1XONLY ONE Digoxin 0.125 mg 05/31/22 11:02 05/31/22 12:05 Digoxin 0.125 Mg Tablet PO 06/30/22 11:01 0.125 mg DAILY DIMPLE Administration Digoxin 0.0625 mg 06/01/22 10:00 06/06/22 11:59 Digoxin 0.125 Mg Tablet PO 07/01/22 09:59 Not Given DAILY DIMPLE Enoxaparin Sodium 30 mg 06/05/22 22:00 06/05/22 23:26 Enoxaparin Sodium 30 Mg/0.3 Ml Syringe SQ 07/05/22 21:59 30 mg Q24H DIMPLE Administration Enoxaparin Sodium 70 mg 06/06/22 22:00 06/06/22 21:35 Enoxaparin Sodium 80 Mg/0.8 Ml Syringe SQ 07/06/22 21:59 70 mg Q24H22 DIMPLE Administration Ferrous Sulfate 325 mg 06/01/22 11:00 06/06/22 21:40 Ferrous Sulfate 325 Mg Tablet PO 07/01/22 10:59 Not Given BID DIMPLE Furosemide 40 mg 05/31/22 07:18 05/31/22 07:39 Furosemide 40 Mg/4 Ml Vial IV 05/31/22 07:19 40 mg STAT ONE Administration Furosemide Confirm 05/31/22 07:28 Furosemide 40 Mg/4 Ml Vial Administered 05/31/22 07:29 Dose 40 mg .ROUTE .STK-MED ONE Furosemide 40 mg 05/31/22 17:00 Furosemide 40 Mg/4 Ml Vial IV 06/30/22 16:59 BID DIURETIC [facility] Furosemide 20 mg 06/01/22 10:00 06/03/22 12:23 Furosemide 20 Mg Tablet PO 07/01/22 09:59 Not Given DAILY DIMPLE Furosemide 40 mg 06/01/22 08:33 06/01/22 14:23 Furosemide 40 Mg/4 Ml Vial IV 06/01/22 23:00 40 mg AFTER LAST UNIT PRN Administration SHORTNESS OF BREATH Furosemide 20 mg 06/03/22 12:30 06/05/22 08:49 Furosemide 20 Mg/Vial IV 07/03/22 12:29 20 mg DAILY DIMPLE Administration Furosemide 20 mg 06/05/22 22:00 06/06/22 13:59 Furosemide 20 Mg/Vial IV 07/05/22 21:59 20 mg Q12HT DIMPLE Administration Furosemide 40 mg 06/07/22 10:00 Furosemide 40 Mg/4 Ml Vial IV 07/07/22 09:59 DAILY DIMPLE Hydromorphone HCl 0.5 mg 06/04/22 14:23 06/05/22 04:56 Hydromorphone 1 Mg/1ml Inj 1 Mg/Ml Syringe IV 06/09/22 14:22 0.5 mg Q4H PRN PRN Administration PAIN Sodium Chloride 500 mls @ 50 mls/hr 06/01/22 09:30 06/01/22 22:04 Sodium Chloride 0.9% 500 Ml IV 06/01/22 22:00 Not Given .Q10H DIMPLE Sodium Chloride 1,000 mls @ 85 mls/hr 06/02/22 13:45 06/07/22 03:17 Sodium Chloride 0.9% 1000 Ml IV 07/02/22 13:44 85 mls/hr .[id number] DIMPLE Infusion Azithromycin 500 mg in 250 mls @ 250 mls/hr 06/04/22 16:00 06/05/22 10:08 Zithromax 500 Mg/ 250 Ml Nacl Premix IV 07/04/22 15:59 250 mls/hr Q24H10 DIMPLE Administration Ceftriaxone Sodium/Dextrose 1 g in 50 mls @ 100 mls/hr 06/05/22 15:00 Rocephin 1 Gm-D5w 50 Ml Bag IV 06/08/22 14:59 Q24H10 DIMPLE Ceftriaxone Sodium/Dextrose 1 g in 50 mls @ 100 mls/hr 06/04/22 15:00 06/05/22 08:48 Rocephin 1 Gm-D5w 50 Ml Bag IV 06/07/22 14:59 100 mls/hr Q24H10 DIMPLE Administration Vancomycin HCl 500 mg/ Sodium 100 mls @ 100 mls/hr 06/06/22 10:00 06/06/22 10:11 Chloride IV 07/06/22 09:59 100 mls/hr DAILY DIMPLE Administration Piperacillin Sod/Tazobactam 100 mls @ 200 mls/hr 06/06/22 12:00 06/07/22 03:31 Sod 2.25 gm/ Sodium Chloride IV 07/06/22 11:59 200 mls/hr Q8H DIMPLE Administration Levothyroxine Sodium 50 mcg 06/05/22 07:00 06/05/22 09:42 Levothyroxine Sodium 50 Mcg Tablet PO 07/05/22 06:59 Not Given DAILY@0700 DIMPLE Levothyroxine Sodium 50 mcg 06/05/22 12:00 06/06/22 10:11 Levothyroxine Sodium 200 Mcg/Vial Vial IV 07/05/22 11:59 50 mcg DAILY DIMPLE Administration Lorazepam 0.25 mg 06/01/22 00:04 06/01/22 00:33 Lorazepam 2 Mg/1 Ml 2 Mg Vial IV 06/01/22 00:05 0.25 mg 1XONLY ONE Administration Lorazepam 1 mg 06/01/22 20:13 06/06/22 20:59 Lorazepam 2 Mg/1 Ml 2 Mg Vial IV 07/01/22 20:12 1 mg Q6H PRN PRN Administration ANXIETY Metolazone 2.5 mg 06/01/22 10:00 06/06/22 12:00 Metolazone 2.5 Mg Tablet PO 07/01/22 09:59 Not Given MoWeFr [facility] Miscellaneous Information 1 each 05/31/22 13:30 Medication Intervention 1 Each Each 06/30/22 13:29 .RT TO CHECK [facility] Non-Formulary Medication 1 each 06/06/22 08:00 06/06/22 08:56 Pharmacy Dosing Request [facility] 06/06/22 08:01 1 each STAT ONE Administration Non-Formulary Medication 1 each 06/06/22 09:07 06/06/22 10:31 Pharmacy Dose Request: Vancomycin 1 Each IV 06/06/22 09:08 1 each STAT STA Administration Olanzapine 5 mg 06/03/22 09:58 06/04/22 16:06 Olanzapine 5 Mg Tab PO 07/03/22 09:57 5 mg HSPRN PRN Administration AGITATION Olanzapine 5 mg 06/04/22 22:00 06/06/22 14:07 Olanzapine 5 Mg Tab PO 07/04/22 21:59 Not Given TID DIMPLE Olanzapine 2.5 mg 06/06/22 15:00 06/06/22 16:51 Olanzapine 5 Mg Tab PO 07/06/22 14:59 2.5 mg TIDPRN PRN Administration Ondansetron HCl 4 mg 05/31/22 11:02 Ondansetron Hcl 4 Mg/2 Ml Vial IV 06/30/22 11:01 Q6H PRN PRN NAUSEA/VOMITING Trelegy Ellipta 1 each 06/01/22 07:00 06/02/22 11:15 Inhaler IH 07/01/22 06:59 1 each 0700 DIMPLE Administration Phenylephrine HCl Confirm 05/31/22 09:43 Neosynephrine 0.5% Nasal [place]/Drops Administered 05/31/22 09:44 Dose 15 ml .ROUTE .STK-MED ONE Potassium Chloride 20 meq 05/31/22 14:00 06/06/22 21:40 Potassium Chloride Tab 10 Meq Tab PO 06/30/22 13:59 Not Given BID DIMPLE Rivaroxaban 15 mg 05/31/22 18:00 06/05/22 19:15 Rivaroxaban 10 Mg Tablet PO 06/30/22 17:59 Not Given EVENING MEAL DIMPLE Ropinirole HCl 1 mg 05/31/22 14:00 06/06/22 09:00 Ropinirole Hcl 0.5 Mg Tablet PO 06/30/22 13:59 Not Given DAILY DIMPLE Code(s): R04.0 - EPISTAXIS (2) Acute renal injury Status: Acute Assessment & Plan: Last Vital Signs Temp 97.5 F 06/07/22 00:00 Pulse 0 L 06/07/22 04:00 Resp 0 L 06/07/22 04:00 BP 129/64 06/07/22 00:00 Pulse Ox 96 06/07/22 00:00 Allergies codeine Adverse Reaction (Verified 05/31/22 06:02) Code(s): N17.9 - ACUTE KIDNEY FAILURE, UNSPECIFIED (3) Acute exacerbation of chronic obstructive pulmonary disease (COPD) Status: Acute Onset Date: ~07/18/17 Code(s): J44.1 - CHRONIC OBSTRUCTIVE PULMONARY DISEASE W (ACUTE) EXACERBATION (4) Chronic systolic heart failure Status: Chronic Onset Date: ~07/18/17 Code(s): I50.22 - CHRONIC SYSTOLIC (CONGESTIVE) HEART FAILURE (5) Hypoalbuminemia Status: Acute Code(s): E88.09 - OTH DISORDERS OF PLASMA-PROTEIN METABOLISM, NEC
--- NOTE | 2022-06-16 22:31 | PCM.DS ---
Discharge Summary Date of Admission: 06/02/22 10:17 Date of Discharge: 06/07/2022 Admitting Physician: OFELIA KURTZ Primary Care Provider: KELY STEIN Allergies Allergies codeine Adverse Reaction (Verified 05/31/22 06:02) Hospital Summary - Hospital Course Hospital Course: Pt. admitted for epistaxis and anemia, pt. with history of chronic kidney disease, chf, pt. symptoms worsened despite aggressive management of the [facility] patient he succumbed to the acuteness and chronicity of his medical conditions. - Vitals & Intake/Output Vital Signs: Vital Signs Temperature 97.5 F 06/07/22 00:00 Pulse Rate 0 L 06/07/22 04:00 Respiratory Rate 0 L 06/07/22 04:00 Blood Pressure 129/64 06/07/22 00:00 O2 Sat by Pulse Oximetry 96 06/07/22 00:00 - Lab Result Diagrams: 06/06/22 04:26 06/06/22 04:26 Micro Results-Entire Visit: Microbiology 06/05/22 11:08 Urine Culture - Final Urine, Void Enterococcus Faecalis 06/05/22 11:08 Urine Culture - Final Urine, Indwelling Catheter Enterococcus Faecalis 05/31/22 06:37 Blood Culture Gram Stain - Final Blood Not Reportable Blood Culture - Final NO GROWTH 05/31/22 06:17 Blood Culture Gram Stain - Final Blood Not Reportable Blood Culture - Final NO GROWTH - Procedures and Test Procedures and Tests throughout Hospitalization: Therapy Orders & Screens 05/31/22 11:02 EKG REPEAT IN AM Comment: Oxygen Nasal Cannula 2 lpm Comment: Respiratory Therapy Consult ROUTINE Comment: Reason For Exam: 05/31/22 11:18 Respiratory Therapy Assessment DAILY Comment: 06/01/22 06:50 Respiratory MDI UD Comment: Diagnosis: CHF, epistaxis 06/02/22 13:35 Speech Therapy Eval & Treat [ST Eval & Treat ( Order)] .as ordered Comment: Physician Instructions: Reason For Exam: Evaluate: Yes Treat: Yes Reason for Eval: excessive coughing with drinks; possible aspiration Diagnosis: CHF, epistaxis 06/02/22 14:51 PT Eval & Treat ( Order) ONCE Reason for Eval:: Weakness; decreased mobility Diagnosis: CHF, epistaxis 06/02/22 14:52 OT Eval and Treat ( Order) ROUTINE Comment: Consulting Provider: Physician Instructions: Reason For Exam: weakness Diagnosis: CHF, epistaxis Discharge Exam General Appearance: mild distress Neurologic Exam: slurred speech (altered mental status noted.) Eye Exam: PERRL, EOMI, eyes nml inspection Ears, Nose, Throat Exam: normal ENT inspection, pharynx normal, moist mucous membranes Neck Exam: normal inspection, non-tender, supple, full range of motion Respiratory Exam: normal breath sounds, lungs clear, No respiratory distress Cardiovascular Exam: regular rate/rhythm, normal heart sounds Gastrointestinal/Abdomen Exam: soft, No tenderness, No mass Male Genitalia Exam: deferred Rectal Exam: deferred Back Exam: normal inspection, normal range of motion, No CVA tenderness, No vertebral tenderness Extremity Exam: normal inspection, normal range of motion Skin Exam: normal color, warm, dry Final Diagnosis/Problem List - Final Discharge Diagnosis/Problem (1) Renal failure Status: Acute (2) Elevated liver enzymes Status: Acute Code(s): R74.8 - ABNORMAL LEVELS OF OTHER SERUM ENZYMES (3) Altered mental state Status: Acute Code(s): R41.82 - ALTERED MENTAL STATUS, UNSPECIFIED (4) Acute renal injury Status: Acute Code(s): N17.9 - ACUTE KIDNEY FAILURE, UNSPECIFIED (5) Acute respiratory failure Status: Acute Onset Date: ~07/18/17 Code(s): J96.00 - ACUTE RESPIRATORY FAILURE, UNSP W HYPOXIA OR HYPERCAPNIA (6) CHF (congestive heart failure) Status: Acute Code(s): I50.9 - HEART FAILURE, UNSPECIFIED (7) Chronic respiratory failure Status: Acute Code(s): J96.10 - CHRONIC RESPIRATORY FAILURE, UNSP W HYPOXIA OR HYPERCAPNIA (8) Elevated brain natriuretic peptide (BNP) level Status: Acute Code(s): R79.89 - OTHER SPECIFIED ABNORMAL FINDINGS OF BLOOD CHEMISTRY (9) Epistaxis Status: Acute Code(s): R04.0 - EPISTAXIS (10) Hypoalbuminemia Status: Acute Code(s): E88.09 - OTH DISORDERS OF PLASMA-PROTEIN METABOLISM, NEC (11) Shortness of breath Status: Acute Code(s): R06.02 - SHORTNESS OF BREATH (12) Chronic systolic heart failure Status: Chronic Onset Date: ~07/18/17 Code(s): I50.22 - CHRONIC SYSTOLIC (CONGESTIVE) HEART FAILURE - Discharge Disposition: Condition: Stable Prescriptions: No Action Potassium Chloride [Klor-Con M10] 20 meq PO BID Furosemide 20 mg PO DAILY carvediloL [Carvedilol] 3.125 mg PO BID Fluticasone/Umeclidin/Vilanter [Trelegy Ellipta 100-62.5-25] 1 puff PO DAILY Albuterol Sulfate [Proair Respiclick] 90 mcg IH DAILY Rivaroxaban [Xarelto] 15 mg PO EVENING MEAL Metolazone 2.5 mg [Zaroxolyn 2.5 MG] 2.5 mg PO UD Fluticasone Furoate [Arnuity Ellipta] 2 puffs IH DAILY Digoxin 0.125 mg Tablet [Lanoxin 0.125MG TABLET] 0.5 tab PO DAILY Amiodarone HCl 50 mg PO DAILY Ropinirole HCl 1 mg PO DAILY Albuterol 2.5 mg/3 ml Neb [Proventil 2.5 mg/3 ml Neb] 1 ampul IH Q4H PRN PRN PRN Reason: Shortness Of Breath Additional Instructions: A REFERRAL WAS SENT TO [facility]. THEY WILL CONTACT YOU FOR A VISIT. THEIR PHONE NUMBER IS [phone] Follow up with: KELY STEIN [Primary Care Provider] -
== END 2022-06-07 07:04 | disposition expired | DRG 682 ==
LOC: ED 05:22 → MED SURG 10:54 → OBSVTOIN 06-02 10:17
PROVIDERS: ADMIT Family Medicine; ATTEND Family Medicine
DX: N17.9 Acute kidney failure, unspecified (principal); J96.00 Acute respiratory failure, unspecified whether with hypoxia or hypercapnia; I50.22 Chronic systolic (congestive) heart failure; J44.1 Chronic obstructive pulmonary disease with (acute) exacerbation; J96.10 Chronic respiratory failure, unspecified whether with hypoxia or hypercapnia; R04.0 Epistaxis; D64.9 Anemia, unspecified; R79.89 Other specified abnormal findings of blood chemistry; E88.09 Other disorders of plasma-protein metabolism, not elsewhere classified; R41.82 Altered mental status, unspecified; R74.8 Abnormal levels of other serum enzymes; Z79.01 Long term (current) use of anticoagulants; Z79.899 Other long term (current) drug therapy; Z20.828 Contact with and (suspected) exposure to other viral communicable diseases; Z99.81 Dependence on supplemental oxygen
CPT/HCPCS: 0241U; 36000; 36415; 36430; 70450; 71045; 80053; 80074; 80162; 81001; 82607; 82746; 83540; 83550; 83880; 84145; 84436; 84443; 84484; 85014; 85018; 85025; 85027; 85045; 85046; 86850; 86900; 86901; 86922; 87040; 87077; 87086; 87186; 93005; 93041; 93268; 94640; 94760; 94762; 96374; 97161; 97165; 99285; G0378; P9016; J0456; J0696; J1170; J1650; J1940; J2060; J2543; J2930; J3370; J7609; A9270-GY